=== PATIENT | male | born 1935 | race American Indian/Alaskan Native ===

== ENCOUNTER 2017-10-04 08:27 | Outpatient (CLI) | payer MEDICARE ==
--- NOTE | 2017-10-04 12:04 | Cat Scan Report ---
CT ABDOMEN PELVIS WITHOUT CONTRAST: HISTORY: Restaging of prostate cancer. COMPARISON: 07/29/16. TECHNIQUE: Helical CT in 1.25mm intervals without IV contrast. Sagittal and coronal reconstructions. FINDINGS: Lung bases: The visualized lung bases are well aerated. No nodule or effusion. Mild cardiomegaly is stable. Liver: Normal. 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 No biliary dilatation is appreciated. Pancreas: Normal. Spleen: Normal. Kidneys/ureters/bladder: Scattered simple appearing renal cysts are noted bilaterally. No evidence for calculus or hydronephrosis. The ureters and bladder are unremarkable. The prostate gland measures 3.6 cm in diameter. Adrenal glands: Normal. Aorta: Mild diffuse calcifications without aneurysm. Intestines: Unremarkable given no oral contrast was administered. Appendix: Normal. Pelvic viscera: Normal. Ascites: None. Adenopathy: None. Musculoskeletal: There is a new sclerotic bony lesion in the left side of the T12 vertebral body measuring 3.1 x 2.4 cm. No additional bony lesions are appreciated. Mild osteopenia and degenerative changes are noted. IMPRESSION: There is a new sclerotic bone lesion in T12 concerning for a solitary bony metastasis. No evidence of visceral mass or adenopathy. Bilateral renal cysts, stable. Porcelain gallbladder, unchanged. Mild cardiomegaly.
--- NOTE | 2017-10-04 14:38 | Nuclear Medicine Report ---
BONE SCAN: History: Prostate cancer Comparison: Bone scan performed 07/[address] abdomen pelvis without contrast performed the same day. After injection of isotope, gamma camera imaging of the bony system was done. There is subtle uptake along the left side of T12 which correlates with the sclerotic bony lesion seen on CT performed same day. No additional areas of suspicious uptake are identified. There is normal renal and soft tissue activity. 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
== END 2017-10-04 08:28 | disposition home or self-care (01) ==
LOC: NM 08:27
PROVIDERS: ATTEND Urology
DX: C79.51 Secondary malignant neoplasm of bone (principal); C61 Malignant neoplasm of prostate; I51.7 Cardiomegaly; N28.1 Cyst of kidney, acquired; I70.0 Atherosclerosis of aorta; M85.88 Other specified disorders of bone density and structure, other site; M47.894 Other spondylosis, thoracic region
CPT/HCPCS: 74176; 78306; A9503

== ENCOUNTER 2018-03-02 09:04 | Outpatient (CLI) | payer MEDICARE ==
--- NOTE | 2018-03-02 10:21 | Ultrasound Report ---
ULTRASOUND ABDOMEN LIMITED: TECHNIQUE: Transabdominal ultrasound with color Doppler interrogation. HISTORY: Elevated liver enzymes. COMPARISON: CT abdomen pelvis without contrast dated 09/24/17. FINDINGS: LIVER: Normal. BILIARY SYSTEM: Porcelain gallbladder is again noted. There is no evidence for biliary dilatation. The CBD measures 3 mm. PANCREAS: Normal. RIGHT KIDNEY: Normal. PROXIMAL AORTA: Normal. ASCITES: None. IMPRESSION: Unremarkable sonographic appearance of the liver. Porcelain gallbladder, unchanged.
== END 2018-03-02 09:05 | disposition home or self-care (01) ==
LOC: US 09:04
PROVIDERS: ATTEND Internal Medicine
DX: K72.90 Hepatic failure, unspecified without coma (principal); K76.89 Other specified diseases of liver; R79.89 Other specified abnormal findings of blood chemistry; I11.0 Hypertensive heart disease with heart failure; I50.9 Heart failure, unspecified; E78.5 Hyperlipidemia, unspecified; E11.9 Type 2 diabetes mellitus without complications; D64.9 Anemia, unspecified
CPT/HCPCS: 76705

== ENCOUNTER 2018-07-12 08:45 | Outpatient (CLI) | payer MEDICARE ==
--- NOTE | 2018-07-12 12:15 | Nuclear Medicine Report ---
BONE SCAN: History: Prostate cancer. Comparison: Bone scan dated 10/04/17. CT abdomen pelvis without contrast performed the same day. After injection of isotope, gamma camera imaging of the bony system was done. There is normal soft tissue and renal uptake. Subtle increased uptake at the level of T12 is stable since the previous bone scan. CAT scan demonstrates a sclerotic lesion at this level consistent with a bony metastasis. No new areas of abnormal radiotracer uptake developed. IMPRESSION: No change. 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 No change since 10/04/17.
--- NOTE | 2018-07-12 12:18 | Cat Scan Report ---
CT ABDOMEN PELVIS WITHOUT CONTRAST: HISTORY: Prostate cancer. COMPARISON: 10/04/17. TECHNIQUE: Helical CT in 1.25mm intervals without IV contrast. Sagittal and coronal reconstructions. FINDINGS: Lung bases: Normal. Liver: Normal. Biliary system: Calcified gallbladder consistent with porcelain gallbladder is unchanged. Pancreas: Normal. Spleen: Normal. Kidneys/ureters/bladder: Scattered simple renal cysts are stable in size and number. No evidence for nephrolithiasis, mass or hydronephrosis. The ureters and bladder are within normal limits. The prostate is normal size. Adrenal glands: Normal. Aorta: Mild diffuse calcifications. No aneurysm. Intestines: No evidence for bowel obstruction or focal inflammation. Appendix: Normal. Pelvic viscera: Normal. Ascites: None. Adenopathy: None. Musculoskeletal: Solitary sclerotic bony lesion at T12 appears stable in size. No new bony lesions. Mild thoracolumbar spondylosis. IMPRESSION: Stable findings since 10/04/17. Solitary bone lesion at T12 is again noted. No evidence for visceral mass or adenopathy. Porcelain gallbladder. Bilateral renal cysts, stable.
== END 2018-07-12 08:46 | disposition home or self-care (01) ==
LOC: NM 08:45
PROVIDERS: ATTEND Urology
DX: C79.51 Secondary malignant neoplasm of bone (principal); N28.1 Cyst of kidney, acquired; M47.895 Other spondylosis, thoracolumbar region; M89.9 Disorder of bone, unspecified; E11.9 Type 2 diabetes mellitus without complications; I11.0 Hypertensive heart disease with heart failure; I50.9 Heart failure, unspecified
CPT/HCPCS: 74176; 78306; A9503

== ENCOUNTER 2019-10-31 11:19 | Inpatient (IN) | payer MEDICARE ==
--- NOTE | 2019-10-31 12:23 | Emergency Department Report ---
ED Altered Mental Status HPI - General Chief Complaint: Altered Mental Status Stated Complaint: DISORIENTED/WEAKNESS Time Seen by Provider: 10/31/19 12:15 Source: patient Mode of arrival: Ambulatory Limitations: No Limitations - History of Present Illness Initial Comments: Patient is an 83-year-old -[place] male who comes to the emergency room via EMS from his PCPs officE. Patient had a scheduled appointment with his PCP today. He did see the PCP and reported that he had a fall last night. His family found him on the floor at about 330 this morning. Patient does not know how he got to the floor. Family is concerned because the patient has endorsed a new weakness. Patient does have underlying mild dementia but his weakness reported by family is increasing. Patient also reports that at times the patient is slow to respond. His blood sugar via EMS was 104. Patient denies chest pain or shortness of breath. Pt denies any focal pain secondary to his fall. Patient does have a medical history of diabetes, hypertension and prostate cancer. Patient denies having any heart problems. He has a echo in the system from several years ago with a normal EF. PMH HTN Hld prostate ca DM dementia Rx norvasc asa clonidine glipizide HCTZ losartan statin aricept tamsulosin prostate injections and pills- does not know name. Pt and are poor informants. No focal neuro deficit on exam. MD Complaint: weakness Associated Symptoms: denies other symptoms, weakness - Related Data Home Medications Medication Instructions Recorded Confirmed Last Taken Amlodipine Besylate [Norvasc] 10 mg PO DAILY 10/31/19 10/31/19 1 Day Ago ~10/30/19 Clonidine HCl [Kapvay] 0.1 mg PO QHS 10/31/19 10/31/19 1 Day Ago ~10/30/19 Losartan/Hydrochlorothiazide 1 each PO DAILY 10/31/19 10/31/19 1 Day Ago [Losartan-Hctz 100-25 mg Tab] ~10/30/19 Memantine HCl 10 mg PO DAILY 10/31/19 10/31/19 1 Day Ago ~10/30/19 Pravastatin Sodium [Pravastatin] 20 mg PO QHS 10/31/19 10/31/19 1 Day Ago ~10/30/19 Tamsulosin [Flomax] 0.4 mg PO BID 10/31/19 10/31/19 1 Day Ago ~10/30/19 glipiZIDE XL [Glucotrol Xl] 10 mg PO QHS 10/31/19 10/31/19 1 Day Ago ~10/30/19 hydroCHLOROthiazide [Hctz] 12.5 mg PO QDAY 10/31/19 10/31/19 1 Day Ago ~10/30/19 Previous Rx's Medication Instructions Recorded Last Taken Type Aspirin [Aspirin BABY CHEW TAB] 81 mg PO QDAY #30 tab.chew 06/20/13 1 Day Ago Rx ~10/30/19 Allergies Allergy/AdvReac Type Severity Reaction Status Date / Time No Known Allergies Allergy Unverified 06/18/13 19:31 ED Review of Systems ROS: Stated complaint: DISORIENTED/WEAKNESS Other details as noted in HPI Comment: All other systems reviewed and negative ED Past Medical Hx - Past Medical History Previous Medical History?: Yes Hx Hypertension: Yes Hx CVA: No Hx Heart Attack/AMI: No Hx Congestive Heart Failure: Yes Hx Diabetes: Yes Hx Deep Vein Thrombosis: No Hx Pulmonary Embolism: No Hx GERD: No Hx Liver Disease: No Hx Renal Disease: No Hx of Cancer: No Hx Sickle Cell Disease: No Hx Arthritis: No Hx Headaches / Migraines: No Hx Seizures: No Hx Kidney Stones: No Hx Psychiatric Treatment: No Hx Asthma: No Hx COPD: No Hx Tuberculosis: No Hx Dementia: Yes Hx HIV: No Additional medical history: high cholesterol. Prostate CA - Surgical History Past Surgical History?: No - Family History Family history: no significant - Social History Smoking Status: Never Smoker Substance Use Type: None - Medications Home Medications: Home Medications Medication Instructions Recorded Confirmed Last Taken Type Aspirin [Aspirin BABY CHEW TAB] 81 mg PO QDAY #30 tab.chew 06/20/13 10/31/19 1 Day Ago Rx ~10/30/19 Amlodipine Besylate [Norvasc] 10 mg PO DAILY 10/31/19 10/31/19 1 Day Ago History ~10/30/19 Clonidine HCl [Kapvay] 0.1 mg PO QHS 10/31/19 10/31/19 1 Day Ago History ~10/30/19 Losartan/Hydrochlorothiazide 1 each PO DAILY 10/31/19 10/31/19 1 Day Ago History [Losartan-Hctz 100-25 mg Tab] ~10/30/19 Memantine HCl 10 mg PO DAILY 10/31/19 10/31/19 1 Day Ago History ~10/30/19 Pravastatin Sodium [Pravastatin] 20 mg PO QHS 10/31/19 10/31/19 1 Day Ago History ~10/30/19 Tamsulosin [Flomax] 0.4 mg PO BID 10/31/19 10/31/19 1 Day Ago History ~10/30/19 glipiZIDE XL [Glucotrol Xl] 10 mg PO QHS 10/31/19 10/31/19 1 Day Ago History ~10/30/19 hydroCHLOROthiazide [Hctz] 12.5 mg PO QDAY 10/31/19 10/31/19 1 Day Ago History ~10/30/19 ED Physical Exam - General Limitations: No Limitations General appearance: alert, in no apparent distress - Head Head exam: Present: atraumatic, normocephalic - Eye Eye exam: Present: normal appearance - ENT ENT exam: Present: mucous membranes dry - Neck Neck exam: Present: normal inspection - Respiratory Respiratory exam: Present: normal lung sounds bilaterally. Absent: respiratory distress - Cardiovascular Cardiovascular Exam: Present: regular rate, bradycardia. Absent: systolic murmur, diastolic murmur, rubs, gallop - GI/Abdominal GI/Abdominal exam: Present: soft, normal bowel sounds - Rectal Rectal exam: Present: deferred - Extremities Exam Extremities exam: Present: normal inspection - Back Exam Back exam: Present: normal inspection - Neurological Exam Neurological exam: Present: alert, oriented X3 - Psychiatric Psychiatric exam: Present: normal affect, normal mood - Skin Skin exam: Present: warm, dry, intact, pallor. Absent: rash - Assessment Assessment Interval: Baseline - Level of Consciousness 1a. Level of Consciousness: alert/keenly responsive - LOC Questions 1b. LOC Questions: answers both correctly - LOC Command 1c. LOC Commands: performs tasks correctly - Best Gaze 2. Best Gaze: normal - Visual 3. Visual: no visual loss - Facial Palsy 4. Facial Palsy: normal symmetrical movement - Motor Arm 5a. Motor Arm Left: no drift 5b. Motor Arm Right: no drift - Motor Leg 6a. Motor Leg Left: no drift 6b. Motor Leg Right: no drift - Limb Ataxia 7. Limb Ataxia: absent - Sensory 8. Sensory: normal - Best Language 9. Best Language: no aphasia - Dysarthria 10. Dysarthria: normal - Extinction and Inattention 11. Extinction/Inattention: no abnormality - Scoring Total Score: 0 Stroke Severity: No Stroke Symptoms ED Course Vital Signs 10/31/19 12:34 Pulse Rate 58 L Respiratory 19 Rate Blood Pressure 131/50 [Left] O2 Sat by Pulse 100 Oximetry - Reevaluation(s) Reevaluation #1: 10/31/19 16:37 Discussed with cardiology- [place] [facility] [place]. - Lab Data Result diagrams: 10/31/19 11:51 10/31/19 Unknown Lab Results 10/31/19 10/31/19 10/31/19 Range/Units 11:51 11:51 12:44 WBC 16.3 H (4.5-11.0) K/mm3 RBC 5.14 H (3.65-5.03) M/mm3 Hgb 9.4 L (11.8-15.2) gm/dl Hct 30.8 L (35.5-45.6) % MCV 60 L (84-94) fl MCH 18 L (28-32) pg MCHC 31 L (32-34) % RDW 22.9 H (13.2-15.2) % Plt Count 683 H (140-440) K/mm3 Crockett % (Auto) Card Lacer Add Manual Diff Complete Total Counted 100 Seg Neuts % (Manual) 88.0 H (40.0-70.0) % Band Neutrophils % 0 % Lymphocytes % (Manual) 4.0 L (13.4-35.0) % Reactive Lymphs % (Man) 0 % Monocytes % (Manual) 6.0 (0.0-7.3) % Eosinophils % (Manual) 1.0 (0.0-4.3) % Basophils % (Manual) 1.0 (0.0-1.8) % Metamyelocytes % 0 % Myelocytes % 0 % Promyelocytes % 0 % Blast Cells % 0 % Nucleated RBC % Not Reportable Seg Neutrophils # Man 14.3 H (1.8-7.7) K/mm3 Band Neutrophils # 0.0 K/mm3 Lymphocytes # (Manual) 0.7 L (1.2-5.4) K/mm3 Abs React Lymphs (Man) 0.0 K/mm3 Monocytes # (Manual) 1.0 H (0.0-0.8) K/mm3 Eosinophils # (Manual) 0.2 (0.0-0.4) K/mm3 Basophils # (Manual) 0.2 H (0.0-0.1) K/mm3 Metamyelocytes # 0.0 K/mm3 Myelocytes # 0.0 K/mm3 Promyelocytes # 0.0 K/mm3 Blast Cells # 0.0 K/mm3 WBC Morphology Not Reportable Hypersegmented Neuts Not Reportable Hyposegmented Neuts Not Reportable Hypogranular Neuts Not Reportable Smudge Cells Not Reportable Toxic Granulation Not Reportable Toxic Vacuolation Not Reportable Dohle Bodies Not Reportable Pelger-Huet Anomaly Not Reportable Riaz Rods Not Reportable Platelet Estimate Consistent w auto Clumped Platelets Not Reportable Plt Clumps, EDTA Not Reportable Large Platelets Not Reportable Giant Platelets Not Reportable Platelet Satelliting Not Reportable Plt Morphology Comment Not Reportable RBC Morphology Not Reportable Dimorphic RBCs Not Reportable Polychromasia Not Reportable Hypochromasia 2+ Poikilocytosis Not Reportable Anisocytosis 1+ Microcytosis 2+ Macrocytosis Not Reportable Spherocytes Not Reportable Pappenheimer Bodies Not Reportable Sickle Cells Not Reportable Target Cells Not Reportable Tear Drop Cells Not Reportable Ovalocytes Not Reportable Helmet Cells Not Reportable Contreras-Carpenter Bodies Not Reportable [place] Rings Not Reportable Nain Cells Not Reportable Bite Cells Not Reportable Crenated Cell Not Reportable Elliptocytes 1+ Acanthocytes (Spur) Not Reportable Rouleaux Not Reportable Hemoglobin C Crystals Not Reportable Schistocytes Not Reportable Malaria parasites Not Reportable Wade Bodies Not Reportable Hem Pathologist Commnt No PT (12.2-14.9) Sec. INR (0.87-1.13) Sodium 132 L (137-145) mmol/L Potassium 4.2 (3.6-5.0) mmol/L Chloride 95.2 L (98-107) mmol/L Carbon Dioxide 23 (22-30) mmol/L Anion Gap 18 mmol/L BUN 15 (9-20) mg/dL Creatinine 0.8 (0.8-1.5) mg/dL Estimated GFR > 60 ml/min BUN/Creatinine Ratio 19 % Glucose 70 L (75-100) mg/dL POC Glucose 85 (70-105) Lactic Acid (0.7-2.0) mmol/L Calcium 8.9 (8.4-10.2) mg/dL Total Bilirubin (0.1-1.2) mg/dL Direct Bilirubin (0-0.2) mg/dL AST (5-40) units/L ALT (7-56) units/L Alkaline Phosphatase (35-129) units/L Troponin T (0.00-0.029) ng/mL Total Protein (6.3-8.2) g/dL Albumin (3.9-5) g/dL Albumin/Globulin Ratio % 10/31/19 10/31/19 10/31/19 Range/Units 14:26 Unknown Unknown WBC (4.5-11.0) K/mm3 RBC (3.65-5.03) M/mm3 Hgb (11.8-15.2) gm/dl Hct (35.5-45.6) % MCV (84-94) fl MCH (28-32) pg MCHC (32-34) % RDW (13.2-15.2) % Plt Count (140-440) K/mm3 Crockett % (Auto) Add Manual Diff Total Counted Seg Neuts % (Manual) (40.0-70.0) % Band Neutrophils % % Lymphocytes % (Manual) (13.4-35.0) % Reactive Lymphs % (Man) % Monocytes % (Manual) (0.0-7.3) % Eosinophils % (Manual) (0.0-4.3) % Basophils % (Manual) (0.0-1.8) % Metamyelocytes % % Myelocytes % % Promyelocytes % % Blast Cells % % Nucleated RBC % Seg Neutrophils # Man (1.8-7.7) K/mm3 Band Neutrophils # K/mm3 Lymphocytes # (Manual) (1.2-5.4) K/mm3 Abs React Lymphs (Man) K/mm3 Monocytes # (Manual) (0.0-0.8) K/mm3 Eosinophils # (Manual) (0.0-0.4) K/mm3 Basophils # (Manual) (0.0-0.1) K/mm3 Metamyelocytes # K/mm3 Myelocytes # K/mm3 Promyelocytes # K/mm3 Blast Cells # K/mm3 WBC Morphology Hypersegmented Neuts Hyposegmented Neuts Hypogranular Neuts Smudge Cells Toxic Granulation Toxic Vacuolation Dohle Bodies Pelger-Huet Anomaly Riaz Rods Platelet Estimate Clumped Platelets Plt Clumps, EDTA Large Platelets Giant Platelets Platelet Satelliting Plt Morphology Comment RBC Morphology Dimorphic RBCs Polychromasia Hypochromasia Poikilocytosis Anisocytosis Microcytosis Macrocytosis Spherocytes Pappenheimer Bodies Sickle Cells Target Cells Tear Drop Cells Ovalocytes Helmet Cells Contreras-Carpenter Bodies [place] Rings Nain Cells Bite Cells Crenated Cell Elliptocytes Acanthocytes (Spur) Rouleaux Hemoglobin C Crystals Schistocytes Malaria parasites Wade Bodies Hem Pathologist Commnt PT 16.9 H (12.2-14.9) Sec. INR 1.35 H (0.87-1.13) Sodium (137-145) mmol/L Potassium (3.6-5.0) mmol/L Chloride (98-107) mmol/L Carbon Dioxide (22-30) mmol/L Anion Gap mmol/L BUN (9-20) mg/dL Creatinine (0.8-1.5) mg/dL Estimated GFR ml/min BUN/Creatinine Ratio % Glucose (75-100) mg/dL POC Glucose (70-105) Lactic Acid 1.10 (0.7-2.0) mmol/L Calcium (8.4-10.2) mg/dL Total Bilirubin (0.1-1.2) mg/dL Direct Bilirubin (0-0.2) mg/dL AST (5-40) units/L ALT (7-56) units/L Alkaline Phosphatase (35-129) units/L Troponin T < 0.010 (0.00-0.029) ng/mL Total Protein (6.3-8.2) g/dL Albumin (3.9-5) g/dL Albumin/Globulin Ratio % 10/31/19 10/31/19 Range/Units Unknown Unknown WBC (4.5-11.0) K/mm3 RBC (3.65-5.03) M/mm3 Hgb (11.8-15.2) gm/dl Hct (35.5-45.6) % MCV (84-94) fl MCH (28-32) pg MCHC (32-34) % RDW (13.2-15.2) % Plt Count (140-440) K/mm3 Crockett % (Auto) Add Manual Diff Total Counted Seg Neuts % (Manual) (40.0-70.0) % Band Neutrophils % % Lymphocytes % (Manual) (13.4-35.0) % Reactive Lymphs % (Man) % Monocytes % (Manual) (0.0-7.3) % Eosinophils % (Manual) (0.0-4.3) % Basophils % (Manual) (0.0-1.8) % Metamyelocytes % % Myelocytes % % Promyelocytes % % Blast Cells % % Nucleated RBC % Seg Neutrophils # Man (1.8-7.7) K/mm3 Band Neutrophils # K/mm3 Lymphocytes # (Manual) (1.2-5.4) K/mm3 Abs React Lymphs (Man) K/mm3 Monocytes # (Manual) (0.0-0.8) K/mm3 Eosinophils # (Manual) (0.0-0.4) K/mm3 Basophils # (Manual) (0.0-0.1) K/mm3 Metamyelocytes # K/mm3 Myelocytes # K/mm3 Promyelocytes # K/mm3 Blast Cells # K/mm3 WBC Morphology Hypersegmented Neuts Hyposegmented Neuts Hypogranular Neuts Smudge Cells Toxic Granulation Toxic Vacuolation Dohle Bodies Pelger-Huet Anomaly Riaz Rods Platelet Estimate Clumped Platelets Plt Clumps, EDTA Large Platelets Giant Platelets Platelet Satelliting Plt Morphology Comment RBC Morphology Dimorphic RBCs Polychromasia Hypochromasia Poikilocytosis Anisocytosis Microcytosis Macrocytosis Spherocytes Pappenheimer Bodies Sickle Cells Target Cells Tear Drop Cells Ovalocytes Helmet Cells Contreras-Carpenter Bodies [place] Rings Nain Cells Bite Cells Crenated Cell Elliptocytes Acanthocytes (Spur) Rouleaux Hemoglobin C Crystals Schistocytes Malaria parasites Wade Bodies Hem Pathologist Commnt PT (12.2-14.9) Sec. INR (0.87-1.13) Sodium 129 L (137-145) mmol/L Potassium 5.0 (3.6-5.0) mmol/L Chloride 91.8 L (98-107) mmol/L Carbon Dioxide 23 (22-30) mmol/L Anion Gap 19 mmol/L BUN 15 (9-20) mg/dL Creatinine 0.8 (0.8-1.5) mg/dL Estimated GFR > 60 ml/min BUN/Creatinine Ratio 19 % Glucose 85 (75-100) mg/dL POC Glucose (70-105) Lactic Acid 1.20 (0.7-2.0) mmol/L Calcium 9.0 (8.4-10.2) mg/dL Total Bilirubin 0.70 (0.1-1.2) mg/dL Direct Bilirubin < 0.2 (0-0.2) mg/dL AST 56 H (5-40) units/L ALT 15 (7-56) units/L Alkaline Phosphatase 45 (35-129) units/L Troponin T (0.00-0.029) ng/mL Total Protein 6.8 (6.3-8.2) g/dL Albumin 3.9 (3.9-5) g/dL Albumin/Globulin Ratio 1.3 % - EKG Data EKG shows normal: sinus rhythm Rate: bradycardia Interpretation: no acute changes - Radiology Data Radiology results: report reviewed, image reviewed - Medical Decision Making Labs 10/31/19 10/31/19 10/31/19 11:51 11:51 12:44 WBC 16.3 H RBC 5.14 H Hgb 9.4 L Hct 30.8 L MCV 60 L MCH 18 L MCHC 31 L RDW 22.9 H Plt Count 683 H Crockett % (Auto) Card Lacer Add Manual Diff Complete Total Counted 100 Seg Neuts % (Manual) 88.0 H Band Neutrophils % 0 Lymphocytes % (Manual) 4.0 L Reactive Lymphs % (Man) 0 Monocytes % (Manual) 6.0 Eosinophils % (Manual) 1.0 Basophils % (Manual) 1.0 Metamyelocytes % 0 Myelocytes % 0 Promyelocytes % 0 Blast Cells % 0 Nucleated RBC % Not Reportable Seg Neutrophils # Man 14.3 H Band Neutrophils # 0.0 Lymphocytes # (Manual) 0.7 L Abs React Lymphs (Man) 0.0 Monocytes # (Manual) 1.0 H Eosinophils # (Manual) 0.2 Basophils # (Manual) 0.2 H Metamyelocytes # 0.0 Myelocytes # 0.0 Promyelocytes # 0.0 Blast Cells # 0.0 WBC Morphology Not Reportable Hypersegmented Neuts Not Reportable Hyposegmented Neuts Not Reportable Hypogranular Neuts Not Reportable Smudge Cells Not Reportable Toxic Granulation Not Reportable Toxic Vacuolation Not Reportable Dohle Bodies Not Reportable Pelger-Huet Anomaly Not Reportable Riaz Rods Not Reportable Platelet Estimate Consistent w auto Clumped Platelets Not Reportable Plt Clumps, EDTA Not Reportable Large Platelets Not Reportable Giant Platelets Not Reportable Platelet Satelliting Not Reportable Plt Morphology Comment Not Reportable RBC Morphology Not Reportable Dimorphic RBCs Not Reportable Polychromasia Not Reportable Hypochromasia 2+ Poikilocytosis Not Reportable Anisocytosis 1+ Microcytosis 2+ Macrocytosis Not Reportable Spherocytes Not Reportable Pappenheimer Bodies Not Reportable Sickle Cells Not Reportable Target Cells Not Reportable Tear Drop Cells Not Reportable Ovalocytes Not Reportable Helmet Cells Not Reportable Contreras-Carpenter Bodies Not Reportable [place] Rings Not Reportable Nain Cells Not Reportable Bite Cells Not Reportable Crenated Cell Not Reportable Elliptocytes 1+ Acanthocytes (Spur) Not Reportable Rouleaux Not Reportable Hemoglobin C Crystals Not Reportable Schistocytes Not Reportable Malaria parasites Not Reportable Wade Bodies Not Reportable Hem Pathologist Commnt No PT INR Sodium 132 L Potassium 4.2 Chloride 95.2 L Carbon Dioxide 23 Anion Gap 18 BUN 15 Creatinine 0.8 Estimated GFR > 60 BUN/Creatinine Ratio 19 Glucose 70 L POC Glucose 85 Lactic Acid Calcium 8.9 Total Bilirubin Direct Bilirubin AST ALT Alkaline Phosphatase Troponin T Total Protein Albumin Albumin/Globulin Ratio 10/31/19 10/31/19 10/31/19 14:26 Unknown Unknown WBC RBC Hgb Hct MCV MCH MCHC RDW Plt Count [place]ckett % (Auto) Add Manual Diff Total Counted Seg Neuts % (Manual) Band Neutrophils % Lymphocytes % (Manual) Reactive Lymphs % (Man) Monocytes % (Manual) Eosinophils % (Manual) Basophils % (Manual) Metamyelocytes % Myelocytes % Promyelocytes % Blast Cells % Nucleated RBC % Seg Neutrophils # Man Band Neutrophils # Lymphocytes # (Manual) Abs React Lymphs (Man) Monocytes # (Manual) Eosinophils # (Manual) Basophils # (Manual) Metamyelocytes # Myelocytes # Promyelocytes # Blast Cells # WBC Morphology Hypersegmented Neuts Hyposegmented Neuts Hypogranular Neuts Smudge Cells Toxic Granulation Toxic Vacuolation Dohle Bodies Pelger-Huet Anomaly Riaz Rods Platelet Estimate Clumped Platelets Plt Clumps, EDTA Large Platelets Giant Platelets Platelet Satelliting Plt Morphology Comment RBC Morphology Dimorphic RBCs Polychromasia Hypochromasia Poikilocytosis Anisocytosis Microcytosis Macrocytosis Spherocytes Pappenheimer Bodies Sickle Cells Target Cells Tear Drop Cells Ovalocytes Helmet Cells Contreras-Carpenter Bodies [place] Rings [place] Cells Bite Cells Crenated Cell Elliptocytes Acanthocytes (Spur) Rouleaux Hemoglobin C Crystals Schistocytes Malaria parasites Wade Bodies Hem Pathologist Commnt PT 16.9 H INR 1.35 H Sodium Potassium Chloride Carbon Dioxide Anion Gap BUN Creatinine Estimated GFR BUN/Creatinine Ratio Glucose POC Glucose Lactic Acid 1.10 Calcium Total Bilirubin Direct Bilirubin AST ALT Alkaline Phosphatase Troponin T < 0.010 Total Protein Albumin Albumin/Globulin Ratio 10/31/19 10/31/19 Unknown Unknown WBC RBC Hgb Hct MCV MCH MCHC RDW Plt Count [place] % (Auto) Add Manual Diff Total Counted Seg Neuts % (Manual) Band Neutrophils % Lymphocytes % (Manual) Reactive Lymphs % (Man) Monocytes % (Manual) Eosinophils % (Manual) Basophils % (Manual) Metamyelocytes % Myelocytes % Promyelocytes % Blast Cells % Nucleated RBC % Seg Neutrophils # Man Band Neutrophils # Lymphocytes # (Manual) Abs React Lymphs (Man) Monocytes # (Manual) Eosinophils # (Manual) Basophils # (Manual) Metamyelocytes # Myelocytes # Promyelocytes # Blast Cells # WBC Morphology Hypersegmented Neuts Hyposegmented Neuts Hypogranular Neuts Smudge Cells Toxic Granulation Toxic Vacuolation Dohle Bodies Pelger-Huet Anomaly Riaz Rods Platelet Estimate Clumped Platelets Plt Clumps, EDTA Large Platelets Giant Platelets Platelet Satelliting Plt Morphology Comment RBC Morphology Dimorphic RBCs Polychromasia Hypochromasia Poikilocytosis Anisocytosis Microcytosis Macrocytosis Spherocytes Pappenheimer Bodies Sickle Cells Target Cells Tear Drop Cells Ovalocytes Helmet Cells Contreras-Carpenter Bodies [place] Rings [place] Cells Bite Cells Crenated Cell Elliptocytes Acanthocytes (Spur) Rouleaux Hemoglobin C Crystals Schistocytes Malaria parasites Wade Bodies Hem Pathologist Commnt PT INR Sodium 129 L Potassium 5.0 Chloride 91.8 L Carbon Dioxide 23 Anion Gap 19 BUN 15 Creatinine 0.8 Estimated GFR > 60 BUN/Creatinine Ratio 19 Glucose 85 POC Glucose Lactic Acid 1.20 Calcium 9.0 Total Bilirubin 0.70 Direct Bilirubin < 0.2 AST 56 H ALT 15 Alkaline Phosphatase 45 Troponin T Total Protein 6.8 Albumin 3.9 Albumin/Globulin Ratio 1.3 Vital Signs 10/31/19 12:34 Pulse Rate 58 L Respiratory 19 Rate Blood Pressure 131/50 [Left] O2 Sat by Pulse [address] Fermin labs noted xray noted CT noted 1600 ekg noted and repeated. The lowest I have seen HR is 49bpm. BP stable. Discussed with cards- [place] [facility] [place] Last ECHO in EMR with normal EF- 2013. 1615 and pt updated- again confirmed no hx of heart attack and pt does not see a cardiology MD output. 1640 U/A pending- C xray noted, no abd pain, blood cultures sent. 1445 Dr Briscoe notified of pt admit. TSH pending - Differential Diagnosis ro cva/tia/sepsis/acs - Core Measures Measure Exclusions: not indicated - NEXUS Criteria Focal neurological deficit present: No Midline spinal tenderness present: No Altered level of consciousness: No Intoxication present: No Distracting injury present: No NEXUS results: C-Spine can be cleared clinically by these results. Imaging is not required. Critical care attestation.: If time is entered above; I have spent that time in minutes in the direct care of this critically ill patient, excluding procedure time. ED Disposition Clinical Impression: Weakness, Bradycardia, Dementia, Prostate CA, Leukocytosis (leucocytosis), Hyponatremia Disposition: [id number] OP ADMIT IP TO THIS HOSP Is pt being admited?: Yes Does the pt Need Aspirin: No Condition: Stable Referrals: PRIMARY CARE, [Primary Care Provider] - 3-5 Days Time of Disposition: 16:31
[2019-10-31 12:39] LABS: Hematocrit 30.8 % (35.5-45.6); Hemoglobin 9.4 gm/dl (11.8-15.2); Mean Corpuscular HGB Conc 31 % (32-34); Platelet Count 683 K/mm3 (140-440); Red Blood Count 5.14 M/mm3 (3.65-5.03)
[2019-10-31 12:44] LABS: Mean Corpuscular Volume 60 fl (84-94); Red Cell Distribution Width 22.9 % (13.2-15.2)
--- NOTE | 2019-10-31 12:51 | XRay Report ---
CHEST 1 VIEW INDICATION: Weakness. COMPARISON: None available. FINDINGS: Support devices: None. Heart: Within normal limits. Pulmonary vascular: Normal. Lungs/Pleura: No acute air space or interstitial disease. Additional findings: None. IMPRESSION: 1. No acute findings. Signer Name: Akash Webster MD Signed: 10/31/2019 12:46 PM Workstation Name: [id number]
[2019-10-31] MEDS ORDERED: SODIUM CHLORIDE 0.9% 1000 ML IV SOLN IV ONE (12:59)
[2019-10-31 13:16] LABS: BUN/Creatinine Ratio 19; Blood Urea Nitrogen 15 mg/dL (9-20); Calcium 8.9 mg/dL (8.4-10.2); Hemolysis Index 21
[2019-10-31 13:24] LABS: Total Cells Counted 100
[2019-10-31 13:25] LABS: Anisocytosis 1+; Hypochromasia 2+; Platelet Estimate Consistent w Auto
[2019-10-31 14:13] LABS: INR 1.35 (0.87-1.13)
[2019-10-31 14:22] LABS: Albumin 3.9 g/dL (3.9-5); BUN/Creatinine Ratio 19; Bilirubin,Direct < 0.2 mg/dL (0-0.2); Blood Urea Nitrogen 15 mg/dL (9-20); Hemolysis Index 124
[2019-10-31 14:23] LABS: Alanine Aminotransferase 15 units/L (7-56)
--- NOTE | 2019-10-31 14:33 | Cat Scan Report ---
CT head/brain wo con INDICATION: AMS. TECHNIQUE: Routine CT head without contrast. All CT scans at this location are performed using CT dos e reduction for ALARA by means of automated exposure control. COMPARISON: None. FINDINGS: BRAIN / INTRACRANIAL CONTENTS: No acute hemorrhage, mass effect, midline shift, or hydrocephalus. No appreciable acute large territorial or lacunar infarct. No chronic infarct. Age-commensurate ventricu lar and cisternal/sulcal prominence. ORBITS: No significant abnormality of visualized orbits. SINUSES / MASTOIDS: No significant abnormality of visualized sinuses and mastoid air cells. ADDITIONAL FINDINGS: None. IMPRESSION: 1. No acute intracranial abnormality. Signer Name: Desmond Lantigua MD Signed: 10/31/2019 2:28 PM Workstation Name: [email or web address]
[2019-10-31] MEDS: cefTRIAXone/NS 1 GM/50 ML 1 GM/50 ML BAG IV SCH (14:40)
--- NOTE | 2019-10-31 21:21 | History and Physical Report ---
History of Present Illness Date of examination: 10/31/19 Date of admission: 10/31/2019 Chief complaint: Syncopal episode at 3:30 AM Generalized weakness History of present illness: 83-year-old male with history of hypertension, early dementia, hyperlipidemia BPH and type 2 diabetes brought in by the family via EMS because of a fall around 3:30 AM. Patient apparently passed out while going to the restroom. Patient also has been feeling weak. Patient is a very poor historian. No chest pain or shortness of breath. No fever or chills. Patient was sent by his PCP for abnormal EKG. In the emergency room patient had a EKG with second-degree AV block. No chest pain or shortness of breath or palpitations or diaphoresis. Past Medical History Previous Medical History?: Yes Hypertension: Yes Congestive Heart Failure: Yes Diabetes: Yes Hx Dementia: Yes Additional medical history: high cholesterol. Prostate CA Surgical History Past Surgical History?: No Family History Family history: no significant Social History Smoking Status: Never Smoker Substance Use Type: None Medications Home Medications: Home Medications Medication Instructions Recorded Confirmed Last Taken Type Aspirin [Aspirin BABY CHEW TAB] 81 mg PO QDAY #30 tab.chew 06/20/13 10/31/19 1 Day Ago Rx ~10/30/19 Amlodipine Besylate [Norvasc] 10 mg PO DAILY 10/31/19 10/31/19 1 Day Ago History ~10/30/19 Clonidine HCl [Kapvay] 0.1 mg PO QHS 10/31/19 10/31/19 1 Day Ago History ~10/30/19 Losartan/Hydrochlorothiazide 1 each PO DAILY 10/31/19 10/31/19 1 Day Ago History [Losartan-Hctz 100-25 mg Tab] ~10/30/19 Memantine HCl 10 mg PO DAILY 10/31/19 10/31/19 1 Day Ago History ~10/30/19 Pravastatin Sodium [Pravastatin] 20 mg PO QHS 10/31/19 10/31/19 1 Day Ago History ~10/30/19 Tamsulosin [Flomax] 0.4 mg PO BID 10/31/19 10/31/19 1 Day Ago History ~10/30/19 glipiZIDE XL [Glucotrol Xl] 10 mg PO QHS 10/31/19 10/31/19 1 Day Ago History ~10/30/19 hydroCHLOROthiazide [Hctz] 12.5 mg PO QDAY 10/31/19 10/31/19 1 Day Ago History ~10/30/19 Review of Systems ROS: Stated complaint: DISORIENTED/WEAKNESS Other details as noted in HPI Syncopal episode around 3:30 AM Comment: All other systems reviewed and negative Medications and Allergies Allergies Allergy/AdvReac Type Severity Reaction Status Date / Time No Known Allergies Allergy Unverified 06/18/13 19:31 Home Medications Medication Instructions Recorded Confirmed Last Taken Type Aspirin [Aspirin BABY CHEW TAB] 81 mg PO QDAY #30 tab.chew 06/20/13 10/31/19 1 Day Ago Rx ~10/30/19 Amlodipine Besylate [Norvasc] 10 mg PO DAILY 10/31/19 10/31/19 1 Day Ago History ~10/30/19 Clonidine HCl [Kapvay] 0.1 mg PO QHS 10/31/19 10/31/19 1 Day Ago History ~10/30/19 Losartan/Hydrochlorothiazide 1 each PO DAILY 10/31/19 10/31/19 1 Day Ago History [Losartan-Hctz 100-25 mg Tab] ~10/30/19 Memantine HCl 10 mg PO DAILY 10/31/19 10/31/19 1 Day Ago History ~10/30/19 Pravastatin Sodium [Pravastatin] 20 mg PO QHS 10/31/19 10/31/19 1 Day Ago History ~10/30/19 Tamsulosin [Flomax] 0.4 mg PO BID 10/31/19 10/31/19 1 Day Ago History ~10/30/19 glipiZIDE XL [Glucotrol Xl] 10 mg PO QHS 10/31/19 10/31/19 1 Day Ago History ~10/30/19 hydroCHLOROthiazide [Hctz] 12.5 mg PO QDAY 10/31/19 10/31/19 1 Day Ago History ~10/30/19 Active Meds: Active Medications Ceftriaxone Sodium (Rocephin/Ns 1 Gm/50 Ml) 1 gm in 50 mls @ 100 mls/hr IV Q24HR [facility]; Protocol Stop: 11/02/19 10:29 Last Admin: 10/31/19 14:40 Dose: 100 mls/hr Documented by: Exam - Constitutional Vitals: Temp Pulse Resp BP Pulse Ox 70 20 168/47 98 10/31/19 18:31 10/31/19 18:31 10/31/19 18:31 10/31/19 18:31 General appearance: Present: no acute distress, well-nourished - EENT Eyes: Present: PERRL ENT: hearing intact, clear oral mucosa - Neck Neck: Present: supple, normal ROM - Respiratory Respiratory effort: normal Respiratory: bilateral: CTA - Cardiovascular Heart rate: 45 Rhythm: regular Heart Sounds: Present: S1 & S2. Absent: rub, click - Extremities Extremities: no ischemia, pulses intact, pulses symmetrical, No edema Peripheral Pulses: within normal limits - Abdominal General gastrointestinal: Present: soft, non-tender, non-distended, normal bowel sounds Male genitourinary: Present: normal - Rectal Rectal Exam: deferred - Integumentary Integumentary: Present: clear, warm, dry - Musculoskeletal Musculoskeletal: gait normal, strength equal bilaterally - Psychiatric Psychiatric: appropriate mood/affect, intact judgment & insight - Neurologic Neurologic: CNII-XII intact, moves all extremities - Allied Health Allied health notes reviewed: nursing, case management MILTON score - [place] Score Age > 65: (1) Yes Aspirin use within the Past 7 Days: (0) No 3 or more CAD Risk Factors: (1) Yes 2 or more Angina events in past 24 hrs: (1) Yes Known CAD with more than 50% Stenosis: (0) No Elevated Cardiac Markers: (0) No ST Deviation Greater than 0.5mm: (0) No MILTON Score: 3 Results - Labs CBC & Chem 7: 10/31/19 11:51 10/31/19 Unknown Labs: Laboratory Last Values WBC 16.3 K/mm3 (4.5-11.0) H 10/31/19 11:51 RBC 5.14 M/mm3 (3.65-5.03) H 10/31/19 11:51 Hgb 9.4 gm/dl (11.8-15.2) L 10/31/19 11:51 Hct 30.8 % (35.5-45.6) L 10/31/19 11:51 MCV 60 fl (84-94) L 10/31/19 11:51 MCH 18 pg (28-32) L 10/31/19 11:51 MCHC 31 % (32-34) L 10/31/19 11:51 RDW 22.9 % (13.2-15.2) H 10/31/19 11:51 Plt Count 683 K/mm3 (140-440) H 10/31/19 11:51 [place] % (Auto) Financial Management Consultant 10/31/19 11:51 Add Manual Diff Complete 10/31/19 11:51 Total Counted 100 10/31/19 11:51 Seg Neuts % (Manual) 88.0 % (40.0-70.0) H 10/31/19 11:51 Band Neutrophils % 0 % 10/31/19 11:51 Lymphocytes % (Manual) 4.0 % (13.4-35.0) L 10/31/19 11:51 Reactive Lymphs % (Man) 0 % 10/31/19 11:51 Monocytes % (Manual) 6.0 % (0.0-7.3) 10/31/19 11:51 Eosinophils % (Manual) 1.0 % (0.0-4.3) 10/31/19 11:51 Basophils % (Manual) 1.0 % (0.0-1.8) 10/31/19 11:51 Metamyelocytes % 0 % 10/31/19 11:51 Myelocytes % 0 % 10/31/19 11:51 Promyelocytes % 0 % 10/31/19 11:51 Blast Cells % 0 % 10/31/19 11:51 Nucleated RBC % Not Reportable 10/31/19 11:51 Seg Neutrophils # Man 14.3 K/mm3 (1.8-7.7) H 10/31/19 11:51 Band Neutrophils # 0.0 K/mm3 10/31/19 11:51 Lymphocytes # (Manual) 0.7 K/mm3 (1.2-5.4) L 10/31/19 11:51 Abs React Lymphs (Man) 0.0 K/mm3 10/31/19 11:51 Monocytes # (Manual) 1.0 K/mm3 (0.0-0.8) H 10/31/19 11:51 Eosinophils # (Manual) 0.2 K/mm3 (0.0-0.4) 10/31/19 11:51 Basophils # (Manual) 0.2 K/mm3 (0.0-0.1) H 10/31/19 11:51 Metamyelocytes # 0.0 K/mm3 10/31/19 11:51 Myelocytes # 0.0 K/mm3 10/31/19 11:51 Promyelocytes # 0.0 K/mm3 10/31/19 11:51 Blast Cells # 0.0 K/mm3 10/31/19 11:51 WBC Morphology Not Reportable 10/31/19 11:51 Hypersegmented Neuts Not Reportable 10/31/19 11:51 Hyposegmented Neuts Not Reportable 10/31/19 11:51 Hypogranular Neuts Not Reportable 10/31/19 11:51 Smudge Cells Not Reportable 10/31/19 11:51 Toxic Granulation Not Reportable 10/31/19 11:51 Toxic Vacuolation Not Reportable 10/31/19 11:51 Dohle Bodies Not Reportable 10/31/19 11:51 Pelger-Huet Anomaly Not Reportable 10/31/19 11:51 Riaz Rods Not Reportable 10/31/19 11:51 Platelet Estimate Consistent w auto 10/31/19 11:51 Clumped Platelets Not Reportable 10/31/19 11:51 Plt Clumps, EDTA Not Reportable 10/31/19 11:51 Large Platelets Not Reportable 10/31/19 11:51 Giant Platelets Not Reportable 10/31/19 11:51 Platelet Satelliting Not Reportable 10/31/19 11:51 Plt Morphology Comment Not Reportable 10/31/19 11:51 RBC Morphology Not Reportable 10/31/19 11:51 Dimorphic RBCs Not Reportable 10/31/19 11:51 Polychromasia Not Reportable 10/31/19 11:51 Hypochromasia 2+ 10/31/19 11:51 Poikilocytosis Not Reportable 10/31/19 11:51 Anisocytosis 1+ 10/31/19 11:51 Microcytosis 2+ 10/31/19 11:51 Macrocytosis Not Reportable 10/31/19 11:51 Spherocytes Not Reportable 10/31/19 11:51 Pappenheimer Bodies Not Reportable 10/31/19 11:51 Sickle Cells Not Reportable 10/31/19 11:51 Target Cells Not Reportable 10/31/19 11:51 Tear Drop Cells Not Reportable 10/31/19 11:51 Ovalocytes Not Reportable 10/31/19 11:51 Helmet Cells Not Reportable 10/31/19 11:51 [place] Bodies Not Reportable 10/31/19 11:51 [place] Rings Not Reportable 10/31/19 11:51 Nain Cells Not Reportable 10/31/19 11:51 Bite Cells Not Reportable 10/31/19 11:51 Crenated Cell Not Reportable 10/31/19 11:51 Elliptocytes 1+ 10/31/19 11:51 Acanthocytes (Spur) Not Reportable 10/31/19 11:51 Rouleaux Not Reportable 10/31/19 11:51 Hemoglobin C Crystals Not Reportable 10/31/19 11:51 Schistocytes Not Reportable 10/31/19 11:51 Malaria parasites Not Reportable 10/31/19 11:51 Wade Bodies Not Reportable 10/31/19 11:51 Hem Pathologist Commnt No 10/31/19 11:51 PT 16.9 Sec. (12.2-14.9) H 10/31/19 Unknown INR 1.35 (0.87-1.13) H 10/31/19 Unknown Sodium 129 mmol/L (137-145) L 10/31/19 Unknown Potassium 5.0 mmol/L (3.6-5.0) 10/31/19 Unknown Chloride 91.8 mmol/L (98-107) L 10/31/19 Unknown Carbon Dioxide 23 mmol/L (22-30) 10/31/19 Unknown Anion Gap 19 mmol/L 10/31/19 Unknown BUN 15 mg/dL (9-20) 10/31/19 Unknown Creatinine 0.8 mg/dL (0.8-1.5) 10/31/19 Unknown Estimated GFR > 60 ml/min 10/31/19 Unknown BUN/Creatinine Ratio 19 % 10/31/19 Unknown Glucose 85 mg/dL (75-100) 10/31/19 Unknown POC Glucose 85 (70-105) 10/31/19 12:44 Lactic Acid 1.20 mmol/L (0.7-2.0) 10/31/19 Unknown Calcium 9.0 mg/dL (8.4-10.2) 10/31/19 Unknown Magnesium 2.00 mg/dL (1.7-2.3) 10/31/19 16:34 Total Bilirubin 0.70 mg/dL (0.1-1.2) 10/31/19 Unknown Direct Bilirubin < 0.2 mg/dL (0-0.2) 10/31/19 Unknown AST 56 units/L (5-40) H 10/31/19 Unknown ALT 15 units/L (7-56) 10/31/19 Unknown Alkaline Phosphatase 45 units/L (35-129) 10/31/19 Unknown Troponin T < 0.010 ng/mL (0.00-0.029) 10/31/19 Unknown Total Protein 6.8 g/dL (6.3-8.2) 10/31/19 Unknown Albumin 3.9 g/dL (3.9-5) 10/31/19 Unknown Albumin/Globulin Ratio 1.3 % 10/31/19 Unknown TSH 1.540 mlU/mL (0.270-4.200) 10/31/19 16:34 Short CBC 10/31/19 Range/Units 11:51 WBC 16.3 H (4.5-11.0) K/mm3 Hgb 9.4 L (11.8-15.2) gm/dl Hct 30.8 L (35.5-45.6) % Plt Count 683 H (140-440) K/mm3 BMP 10/31/19 10/31/19 11:51 Unknown Sodium 132 L 129 L Potassium 4.2 5.0 Chloride 95.2 L 91.8 L Carbon Dioxide 23 23 BUN 15 15 Creatinine 0.8 0.8 Glucose 70 L 85 Calcium 8.9 9.0 Cardiac Enzymes 10/31/19 Range/Units Unknown Troponin T < 0.010 (0.00-0.029) ng/mL Liver Function 10/31/19 Range/Units Unknown Total Bilirubin 0.70 (0.1-1.2) mg/dL Direct Bilirubin < 0.2 (0-0.2) mg/dL AST 56 H (5-40) units/L ALT 15 (7-56) units/L Alkaline Phosphatase 45 (35-129) units/L Albumin 3.9 (3.9-5) g/dL - Imaging and Cardiology EKG: report reviewed (Heart rate of 45/min bradycardia with irregular heart rate left anterior fascicular block second EKG second-degree AV block with a drop with PVCs heart rate of 60) Chest x-ray: report reviewed (No acute findings) CT Scan - head: report reviewed (No acute findings) Assessment and Plan Advance Directives: Yes (Full code) VTE prophylaxis?: Chemical Plan of care discussed with patient/family: Yes - Patient Problems (1) Second degree AV block Current Visit: Yes Status: Acute Plan to address problem: Cardiology consulted Patient had syncope also Syncope work-up (2) Syncope and collapse Current Visit: Yes Status: Acute Plan to address problem: Syncope work-up Carotid duplex scan Lexiscan in the morning Echocardiogram (3) Anemia Current Visit: Yes Status: Acute Qualifiers: Anemia type: unspecified type Qualified Code(s): D64.9 - Anemia, unspecified Plan to address problem: Anemia work-up (4) Hyponatremia Current Visit: Yes Status: Acute Plan to address problem: IV normal saline for now (5) Hypertension Current Visit: Yes Status: Chronic Qualifiers: Hypertension type: essential hypertension Qualified Code(s): I10 - Essential (primary) hypertension Plan to address problem: Continue antihypertensives Stop AV anne blockers because of the bradycardia and second-degree block (6) T2DM (type 2 diabetes mellitus) Current Visit: Yes Status: Chronic Qualifiers: Diabetes mellitus terminal press operator insulin use: unspecified terminal press operator insulin use status Plan to address problem: Coverage for now Hemoglobin A1c to be checked (7) Hyperlipemia Current Visit: No Status: Chronic Qualifiers: Hyperlipidemia type: mixed hyperlipidemia Qualified Code(s): E78.2 - Mixed hyperlipidemia Plan to address problem: Continue statins (8) DVT prophylaxis Current Visit: Yes Status: Acute Plan to address problem: On heparin and GI prophylaxis
[2019-10-31] MEDS ORDERED: HYDROmorphone 1 MG/1 ML INJ IV PRN (21:34)
[2019-10-31] MEDS ORDERED: oxyCODONE /ACETAMINOPHEN 5-325MG TAB PO PRN (21:34)
[2019-10-31] MEDS ORDERED: ACETAMINOPHEN 325 MG TAB PO PRN (21:34)
[2019-10-31] MEDS ORDERED: ONDANSETRON 4 MG/2 ML INJ IV PRN (21:34)
[2019-10-31] MEDS ORDERED: INSULIN LISPRO 100 UNIT/ML SUB-Q ONE (21:40)
[2019-10-31] MEDS ORDERED: cloNIDine 0.1 MG TAB PO SCH (22:00)
[2019-11-01 00:53] LABS: Bilirubin,Urine NEG (Negative); Blood,Urine NEG (Negative); Color,Urine Straw (Yellow); Mucus,Urine FEW /HPF; Protein,Urine <15 mg/dL mg/dL (Negative); Urobilinogen,Urine < 2.0 mg/dL (<2.0); WBC,Urine < 1.0 /HPF (0.0-6.0)
[2019-11-01] MEDS: HEPARIN 5,000 UNIT/1 ML VIAL SUB-Q SCH ×3 (01:03→22:03)
[2019-11-01] MEDS: SODIUM CHLORIDE 0.9% 1000 ML 1,000 ML IV SCH (01:04)
[2019-11-01 06:03] LABS: Basophils # (Auto) 0.2 K/mm3 (0.0-0.1); Eosinophils # (Auto) 0.3 K/mm3 (0.0-0.4); Eosinophils % (Auto) 2.9 % (0.0-4.3); Hematocrit 32.8 % (35.5-45.6); Lymphocytes # (Auto) 1.8 K/mm3 (1.2-5.4); Lymphocytes % (Auto) 16.9 % (13.4-35.0); Mean Corpuscular HGB Conc 31 % (32-34); Monocytes # (Auto) 1.6 K/mm3 (0.0-0.8); Monocytes % (Auto) 15.4 % (0.0-7.3); Platelet Count 659 K/mm3 (140-440); Red Blood Count 5.39 M/mm3 (3.65-5.03)
[2019-11-01 06:13] LABS: Mean Corpuscular Volume 61 fl (84-94); Red Cell Distribution Width 23.1 % (13.2-15.2)
[2019-11-01 06:25] LABS: Alanine Aminotransferase 13 units/L (7-56); Albumin 3.4 g/dL (3.9-5); BUN/Creatinine Ratio 10; Blood Urea Nitrogen 8 mg/dL (9-20); Calcium 8.6 mg/dL (8.4-10.2); Hemolysis Index 4
[2019-11-01] MEDS ORDERED: REGADENOSON 0.4 MG/5 ML INJ IV ONE (07:27)
[2019-11-01] MEDS ORDERED: NON-FORMULARY EACH (Losartan/Hydrochlorothiazide [Losartan-Hctz 100-25 Mg Tab] 1 EACH) PO SCH (10:00)
[2019-11-01] MEDS ORDERED: hydroCHLOROthiazide 12.5 MG CAP PO SCH (10:00)
[2019-11-01] MEDS: TAMSULOSIN 0.4 MG CAP PO SCH ×3 (10:59→22:03)
[2019-11-01] MEDS: PRAVASTATIN 20 MG TAB PO SCH ×2 (10:59→22:03)
[2019-11-01] MEDS: LOSARTAN 50 MG TAB PO SCH (11:05)
[2019-11-01] MEDS: MEMANTINE 10 MG TAB PO SCH (11:06)
[2019-11-01] MEDS: amLODIPine 10 MG TAB PO SCH (11:06)
[2019-11-01] MEDS: ASPIRIN 81 MG TAB CHEW PO SCH (11:06)
[2019-11-01] MEDS: hydroCHLOROthiazide 25 MG TAB PO SCH (11:06)
[2019-11-01] MEDS: cefTRIAXone/NS 1 GM/50 ML 1 GM/50 ML BAG IV SCH (11:07)
--- NOTE | 2019-11-01 11:42 | Consultation ---
History of Present Illness Consult date: 11/01/19 Consult reason: other (Abnormal ECG) History of present illness: This is an 83-year old male who was referred to the emergency department with al tered mental status and generalized weakness. It's also reported the patient was found on the floor two nights ago. It is unclear if he had a mechanical fall or syncopized. Head CT reports no acute intracranial abnormalities and a chest x- ray is negative. His presenting ECG is sinus rhythm, 2nd degree AV block and RBBB. TSH at 1.5. A cardiac consultation has been requested for further evaluation and recommendations. Medications and Allergies Allergies Allergy/AdvReac Type Severity Reaction Status Date / Time No Known Allergies Allergy Unverified 06/18/13 19:31 Home Medications Medication Instructions Recorded Confirmed Last Taken Type Aspirin [Aspirin BABY CHEW TAB] 81 mg PO QDAY #30 tab.chew 06/20/13 10/31/19 1 Day Ago Rx ~10/30/19 Amlodipine Besylate [Norvasc] 10 mg PO DAILY 10/31/19 10/31/19 1 Day Ago History ~10/30/19 Clonidine HCl [Kapvay] 0.1 mg PO QHS 10/31/19 10/31/19 1 Day Ago History ~10/30/19 Losartan/Hydrochlorothiazide 1 each PO DAILY 10/31/19 10/31/19 1 Day Ago History [Losartan-Hctz 100-25 mg Tab] ~10/30/19 Memantine HCl 10 mg PO DAILY 10/31/19 10/31/19 1 Day Ago History ~10/30/19 Pravastatin Sodium [Pravastatin] 20 mg PO QHS 10/31/19 10/31/19 1 Day Ago History ~10/30/19 Tamsulosin [Flomax] 0.4 mg PO BID 10/31/19 10/31/19 1 Day Ago History ~10/30/19 glipiZIDE XL [Glucotrol Xl] 10 mg PO QHS 10/31/19 10/31/19 1 Day Ago History ~10/30/19 hydroCHLOROthiazide [Hctz] 12.5 mg PO QDAY 10/31/19 10/31/19 1 Day Ago History ~10/30/19 Active Meds: Active Medications Acetaminophen (Tylenol) 650 mg PO Q4H PRN PRN Reason: Pain MILD(1-3)/Fever >100.5/MORALES Amlodipine Besylate (Amlodipine) 10 mg PO DAILY [facility] Last Admin: 11/01/19 11:06 Dose: 10 mg Documented by: Aspirin (Baby Aspirin) 81 mg PO QDAY [facility] Last Admin: 11/01/19 11:06 Dose: 81 mg Documented by: Glipizide (Glucotrol Xl) 10 mg PO QHS [facility] Last Admin: 11/01/19 10:59 Dose: Not Given Documented by: Heparin Sodium (Porcine) (Heparin) 5,000 unit SUB-Q Q12HR [facility] Last Admin: 11/01/19 11:06 Dose: 5,000 unit Documented by: Hydrochlorothiazide (Hctz) 25 mg PO QDAY [facility] Last Admin: 11/01/19 11:06 Dose: 25 mg Documented by: Hydromorphone HCl (Dilaudid) 0.5 mg IV Q3H PRN PRN Reason: Pain , Severe (7-10) Ceftriaxone Sodium (Rocephin/Ns 1 Gm/50 Ml) 1 gm in 50 mls @ 100 mls/hr IV Q24HR [facility]; Protocol Stop: 11/02/19 10:29 Last Admin: 11/01/19 11:07 Dose: 100 mls/hr Documented by: Sodium Chloride (Nacl 0.9% 1000 Ml) 1,000 mls @ 75 mls/hr IV DIRECT [facility] Last Admin: 11/01/19 01:04 Dose: 75 mls/hr Documented by: Losartan Potassium (Cozaar) 100 mg PO QDAY [facility] Last Admin: 11/01/19 11:05 Dose: 100 mg Documented by: Memantine (Memantine) 10 mg PO DAILY [facility] Last Admin: 11/01/19 11:06 Dose: 10 mg Documented by: Ondansetron HCl (Zofran) 4 mg IV Q8H PRN PRN Reason: Nausea And Vomiting Oxycodone/Acetaminophen (Percocet 5/325) 1 tab PO Q6H PRN PRN Reason: Pain, Moderate (4-6) Pravastatin Sodium (Pravachol) 20 mg PO QHS [facility] Last Admin: 11/01/19 10:59 Dose: Not Given Documented by: Sodium Chloride (Sodium Chloride Flush Syringe 10 Ml) 10 ml IV BID [facility] Last Admin: 11/01/19 11:06 Dose: 10 ml Documented by: Sodium Chloride (Sodium Chloride Flush Syringe 10 Ml) 10 ml IV PRN PRN PRN Reason: LINE FLUSH Tamsulosin HCl (Flomax) 0.4 mg PO BID [facility] Last Admin: 11/01/19 11:05 Dose: 0.4 mg Documented by: Zolpidem Tartrate (Ambien) 5 mg PO QHS PRN PRN Reason: Insomnia Physical Examination Vital Signs Pulse Resp Pulse Ox 62 22 97 10/31/19 12:30 10/31/19 12:30 10/31/19 12:30 General appearance: no acute distress Cardiac: Positive: Bradycardia Results 11/01/19 05:35 11/01/19 05:35 Cardiac Enzymes 10/31/19 11/01/19 Range/Units Unknown 05:35 AST 56 H 35 (5-40) units/L Coagulation 10/31/19 Range/Units Unknown PT 16.9 H (12.2-14.9) Sec. INR 1.35 H (0.87-1.13) CBC 10/31/19 11/01/19 Range/Units 11:51 05:35 WBC 16.3 H 10.7 (4.5-11.0) K/mm3 RBC 5.14 H 5.39 H (3.65-5.03) M/mm3 Hgb 9.4 L 10.0 L (11.8-15.2) gm/dl Hct 30.8 L 32.8 L (35.5-45.6) % Plt Count 683 H 659 H (140-440) K/mm3 Lymph # 1.8 (1.2-5.4) K/mm3 [place] # 1.6 H (0.0-0.8) K/mm3 Eos # 0.3 (0.0-0.4) K/mm3 Baso # 0.2 H (0.0-0.1) K/mm3 Comprehensive Metabolic Panel 10/31/19 10/31/19 11/01/19 Range/Units 11:51 Unknown 05:35 Sodium 132 L 129 L 138 D (137-145) mmol/L Potassium 4.2 5.0 3.9 D (3.6-5.0) mmol/L Chloride 95.2 L 91.8 L 102.2 (98-107) mmol/L Carbon Dioxide 23 23 21 L (22-30) mmol/L BUN 15 15 8 L (9-20) mg/dL Creatinine 0.8 0.8 0.8 (0.8-1.5) mg/dL Glucose 70 L 85 97 (75-100) mg/dL Calcium 8.9 9.0 8.6 (8.4-10.2) mg/dL Direct Bilirubin < 0.2 (0-0.2) mg/dL AST 56 H 35 (5-40) units/L ALT 15 13 (7-56) units/L Alkaline Phosphatase 45 46 (35-129) units/L Total Protein 6.8 6.1 L (6.3-8.2) g/dL Albumin 3.9 3.4 L (3.9-5) g/dL Assessment and Plan - Patient Problems (1) Syncope and collapse Current Visit: Yes Status: Acute (2) Second degree AV block Current Visit: Yes Status: Acute (3) Dementia Current Visit: Yes Status: Acute
--- NOTE | 2019-11-01 14:09 | Vascular Lab Report ---
Bilateral Carotid Doppler Ultrasound INDICATION : Syncope and collapse TECHNIQUE: Grayscale and color Doppler imaging performed through the neck. COMPARISON: None FINDINGS: Right: There is mild atherosclerotic disease in the carotid bulb and proximal ICA. Peak systolic ve locity in the CCA is 86 cm/s with end-diastolic velocity of 8 cm/s. Peak systolic velocity in the pro ximal ICA is 112 cm/s with end-diastolic velocity of 7 cm/s. ICA to CCA ratio is less than 2. There i s antegrade flow in the ECA and the vertebral artery. Left: There is mild atherosclerotic disease in the carotid bulb and proximal ICA. Peak systolic veloc ity in the CCA is 89 cm/s with end-diastolic velocity of 6 cm/s. Peak systolic velocity in the proxim al ICA is 116 cm/s with end-diastolic velocity of 11 cm/s. ICA to CCA ratio is less than 2. There is antegrade flow in the ECA and the vertebral artery. IMPRESSION: No hemodynamically significant stenosis by NASCET criteria. Signer Name: Titi Severino MD Signed: 11/01/2019 2:05 PM Workstation Name: [id number]
--- NOTE | 2019-11-01 20:00 | Progress Note ---
Assessment and Plan Assessment and plan: --Second degree AV block Current Visit: Yes Status: Acute Cardiology evaluation recommendations noted and appreciated Syncope work-up in progress Stop AV anne blockers --Syncope and collapse Current Visit: Yes Status: Acute Follow syncope work-up Carotid duplex scan Cardiology canceled Lexiscan Follow echocardiogram -- Anemia Current Visit: Yes Status: Acute Anemia work-up, closely monitor H&H -- Hyponatremia Current Visit: Yes Status: Acute IV normal saline , sodium levels improved --Hypertension Current Visit: Yes Status: Chronic Moderate control ,continue antihypertensives Stop AV anne blockers.due to bradycardia and second-degree block --T2DM (type 2 diabetes mellitus) Current Visit: Yes Status: Chronic Accu-Chek sliding scale coverage ADA diet hemoglobin A1c to be checked -- Hyperlipemia Current Visit: No Status: Chronic Continue statins, low-cholesterol diet -- DVT prophylaxis Current Visit: Yes Status: Acute. On heparin and GI prophylaxis --full CODE STATUS; Disposition; follow syncope work-up Follow cardiology evaluation and recommendations Possible discharge in 1 to 2 days if stable History Interval history: Patient seen and examined Patient's chart, medications reviewed Patient admitted with syncope, bradycardia AV anne blockers held Cardiology evaluation noted and appreciated Vital signs noted Hospitalist Physical - Constitutional Vitals: Temp Pulse Resp BP Pulse Ox 98.2 F 61 16 150/45 97 11/01/19 04:52 11/01/19 15:00 11/01/19 04:52 11/01/19 11:06 11/01/19 04:52 General appearance: Present: no acute distress, well-nourished - EENT Eyes: Present: PERRL, EOM intact - Neck Neck: Present: supple, normal ROM - Respiratory Respiratory effort: normal Respiratory: bilateral: diminished, negative: rales, rhonchi, wheezing - Cardiovascular Rhythm: regular Heart Sounds: Present: S1 & S2 - Extremities Extremities: no ischemia, No edema - Abdominal General gastrointestinal: soft, non-tender, non-distended, normal bowel sounds - Integumentary Integumentary: Present: clear, warm - Psychiatric Psychiatric: appropriate mood/affect, cooperative - Neurologic Neurologic: moves all extremities MILTON score - Milton Score Age > 65: (1) Yes Aspirin use within the Past 7 Days: (0) No 3 or more CAD Risk Factors: (1) Yes 2 or more Angina events in past 24 hrs: (1) Yes Known CAD with more than 50% Stenosis: (0) No Elevated Cardiac Markers: (0) No ST Deviation Greater than 0.5mm: (0) No MILTON Score: 3 Results - Labs CBC & Chem 7: 11/01/19 05:35 11/01/19 05:35 Labs: Laboratory Last Values WBC 10.7 K/mm3 (4.5-11.0) 11/01/19 05:35 RBC 5.39 M/mm3 (3.65-5.03) H 11/01/19 05:35 Hgb 10.0 gm/dl (11.8-15.2) L 11/01/19 05:35 Hct 32.8 % (35.5-45.6) L 11/01/19 05:35 MCV 61 fl (84-94) L 11/01/19 05:35 MCH 19 pg (28-32) L 11/01/19 05:35 MCHC 31 % (32-34) L 11/01/19 05:35 RDW 23.1 % (13.2-15.2) H 11/01/19 05:35 Plt Count 659 K/mm3 (140-440) H 11/01/19 05:35 Lymph % (Auto) 16.9 % (13.4-35.0) 11/01/19 05:35 Storey % (Auto) 15.4 % (0.0-7.3) H 11/01/19 05:35 Eos % (Auto) 2.9 % (0.0-4.3) 11/01/19 05:35 Baso % (Auto) 2.0 % (0.0-1.8) H 11/01/19 05:35 Lymph # 1.8 K/mm3 (1.2-5.4) 11/01/19 05:35 Storey # 1.6 K/mm3 (0.0-0.8) H 11/01/19 05:35 Eos # 0.3 K/mm3 (0.0-0.4) 11/01/19 05:35 Baso # 0.2 K/mm3 (0.0-0.1) H 11/01/19 05:35 Add Manual Diff Complete 10/31/19 11:51 Total Counted 100 10/31/19 11:51 Seg Neutrophils % 62.8 % (40.0-70.0) 11/01/19 05:35 Seg Neuts % (Manual) 88.0 % (40.0-70.0) H 10/31/19 11:51 Band Neutrophils % 0 % 10/31/19 11:51 Lymphocytes % (Manual) 4.0 % (13.4-35.0) L 10/31/19 11:51 Reactive Lymphs % (Man) 0 % 10/31/19 11:51 Monocytes % (Manual) 6.0 % (0.0-7.3) 10/31/19 11:51 Eosinophils % (Manual) 1.0 % (0.0-4.3) 10/31/19 11:51 Basophils % (Manual) 1.0 % (0.0-1.8) 10/31/19 11:51 Metamyelocytes % 0 % 10/31/19 11:51 Myelocytes % 0 % 10/31/19 11:51 Promyelocytes % 0 % 10/31/19 11:51 Blast Cells % 0 % 10/31/19 11:51 Nucleated RBC % Not Reportable 10/31/19 11:51 Seg Neutrophils # 6.7 K/mm3 (1.8-7.7) 11/01/19 05:35 Seg Neutrophils # Man 14.3 K/mm3 (1.8-7.7) H 10/31/19 11:51 Band Neutrophils # 0.0 K/mm3 10/31/19 11:51 Lymphocytes # (Manual) 0.7 K/mm3 (1.2-5.4) L 10/31/19 11:51 Abs React Lymphs (Man) 0.0 K/mm3 10/31/19 11:51 Monocytes # (Manual) 1.0 K/mm3 (0.0-0.8) H 10/31/19 11:51 Eosinophils # (Manual) 0.2 K/mm3 (0.0-0.4) 10/31/19 11:51 Basophils # (Manual) 0.2 K/mm3 (0.0-0.1) H 10/31/19 11:51 Metamyelocytes # 0.0 K/mm3 10/31/19 11:51 Myelocytes # 0.0 K/mm3 10/31/19 11:51 Promyelocytes # 0.0 K/mm3 10/31/19 11:51 Blast Cells # 0.0 K/mm3 10/31/19 11:51 WBC Morphology Not Reportable 10/31/19 11:51 Hypersegmented Neuts Not Reportable 10/31/19 11:51 Hyposegmented Neuts Not Reportable 10/31/19 11:51 Hypogranular Neuts Not Reportable 10/31/19 11:51 Smudge Cells Not Reportable 10/31/19 11:51 Toxic Granulation Not Reportable 10/31/19 11:51 Toxic Vacuolation Not Reportable 10/31/19 11:51 Dohle Bodies Not Reportable 10/31/19 11:51 Pelger-Huet Anomaly Not Reportable 10/31/19 11:51 Riaz Rods Not Reportable 10/31/19 11:51 Platelet Estimate Consistent w auto 10/31/19 11:51 Clumped Platelets Not Reportable 10/31/19 11:51 Plt Clumps, EDTA Not Reportable 10/31/19 11:51 Large Platelets Not Reportable 10/31/19 11:51 Giant Platelets Not Reportable 10/31/19 11:51 Platelet Satelliting Not Reportable 10/31/19 11:51 Plt Morphology Comment Not Reportable 10/31/19 11:51 RBC Morphology Not Reportable 10/31/19 11:51 Dimorphic RBCs Not Reportable 10/31/19 11:51 Polychromasia Not Reportable 10/31/19 11:51 Hypochromasia 2+ 10/31/19 11:51 Poikilocytosis Not Reportable 10/31/19 11:51 Anisocytosis 1+ 10/31/19 11:51 Microcytosis 2+ 10/31/19 11:51 Macrocytosis Not Reportable 10/31/19 11:51 Spherocytes Not Reportable 10/31/19 11:51 Pappenheimer Bodies Not Reportable 10/31/19 11:51 Sickle Cells Not Reportable 10/31/19 11:51 Target Cells Not Reportable 10/31/19 11:51 Tear Drop Cells Not Reportable 10/31/19 11:51 Ovalocytes Not Reportable 10/31/19 11:51 Helmet Cells Not Reportable 10/31/19 11:51 [place] Bodies Not Reportable 10/31/19 11:51 Harshaw Rings Not Reportable 10/31/19 11:51 Nain Cells Not Reportable 10/31/19 11:51 Bite Cells Not Reportable 10/31/19 11:51 Crenated Cell Not Reportable 10/31/19 11:51 Elliptocytes 1+ 10/31/19 11:51 Acanthocytes (Spur) Not Reportable 10/31/19 11:51 Rouleaux Not Reportable 10/31/19 11:51 Hemoglobin C Crystals Not Reportable 10/31/19 11:51 Schistocytes Not Reportable 10/31/19 11:51 Malaria parasites Not Reportable 10/31/19 11:51 Wade Bodies Not Reportable 10/31/19 11:51 Hem Pathologist Commnt No 10/31/19 11:51 PT 16.9 Sec. (12.2-14.9) H 10/31/19 Unknown INR 1.35 (0.87-1.13) H 10/31/19 Unknown Sodium 138 mmol/L (137-145) D 11/01/19 05:35 Potassium 3.9 mmol/L (3.6-5.0) D 11/01/19 05:35 Chloride 102.2 mmol/L (98-107) 11/01/19 05:35 Carbon Dioxide 21 mmol/L (22-30) L 11/01/19 05:35 Anion Gap 19 mmol/L 11/01/19 05:35 BUN 8 mg/dL (9-20) L 11/01/19 05:35 Creatinine 0.8 mg/dL (0.8-1.5) 11/01/19 05:35 Estimated GFR > 60 ml/min 11/01/19 05:35 BUN/Creatinine Ratio 10 % 11/01/19 05:35 Glucose 97 mg/dL (75-100) 11/01/19 05:35 POC Glucose 180 (70-105) H 11/01/19 13:18 Hemoglobin A1c 5.6 % (4-6) 11/01/19 05:35 Lactic Acid 1.20 mmol/L (0.7-2.0) 10/31/19 Unknown Calcium 8.6 mg/dL (8.4-10.2) 11/01/19 05:35 Magnesium 2.00 mg/dL (1.7-2.3) 10/31/19 16:34 Total Bilirubin 0.50 mg/dL (0.1-1.2) 11/01/19 05:35 Direct Bilirubin < 0.2 mg/dL (0-0.2) 10/31/19 Unknown AST 35 units/L (5-40) 11/01/19 05:35 ALT 13 units/L (7-56) 11/01/19 05:35 Alkaline Phosphatase 46 units/L (35-129) 11/01/19 05:35 Troponin T < 0.010 ng/mL (0.00-0.029) 11/01/19 05:35 Total Protein 6.1 g/dL (6.3-8.2) L 11/01/19 05:35 Albumin 3.4 g/dL (3.9-5) L 11/01/19 05:35 Albumin/Globulin Ratio 1.3 % 11/01/19 05:35 TSH 1.540 mlU/mL (0.270-4.200) 10/31/19 16:34 Urine Color Straw (Yellow) 11/01/19 00:00 Urine Turbidity Clear (Clear) 11/01/19 00:00 Urine pH 6.0 (5.0-7.0) 11/01/19 00:00 Ur Specific [place] 1.005 (1.003-1.030) 11/01/19 00:00 Urine Protein <15 mg/dl mg/dL (Negative) 11/01/19 00:00 Urine Glucose (UA) Neg mg/dL (Negative) 11/01/19 00:00 Urine Ketones Neg mg/dL (Negative) 11/01/19 00:00 Urine Blood Neg (Negative) 11/01/19 00:00 Urine Nitrite Neg (Negative) 11/01/19 00:00 Urine Bilirubin Neg (Negative) 11/01/19 00:00 Urine Urobilinogen < 2.0 mg/dL (<2.0) 11/01/19 00:00 Ur Leukocyte Esterase Neg (Negative) 11/01/19 00:00 Urine WBC (Auto) < 1.0 /HPF (0.0-6.0) 11/01/19 00:00 Urine RBC (Auto) 2.0 /HPF (0.0-6.0) 11/01/19 00:00 U Epithel Cells (Auto) 1.0 /HPF (0-13.0) 11/01/19 00:00 Urine Mucus Few /HPF 11/01/19 00:00 Active Medications - Current Medications Current Medications: Generic Name Dose Route Start Last Admin Trade Name Freq PRN Reason Stop Dose Admin Acetaminophen 650 mg 10/31/19 21:34 Tylenol PO Q4H PRN Pain MILD(1-3)/Fever >100.5/MORALES Amlodipine Besylate 10 mg 11/01/19 10:00 11/01/19 11:06 Amlodipine PO 10 mg DAILY DEION Administration Aspirin 81 mg 11/01/19 10:00 11/01/19 11:06 Baby Aspirin PO 81 mg QDAY DEION Administration Glipizide 10 mg 10/31/19 22:00 11/01/19 10:59 Glucotrol Xl PO Not Given QHS DEION Heparin Sodium (Porcine) 5,000 unit 10/31/19 22:00 11/01/19 11:06 Heparin SUB-Q 5,000 unit Q12HR DEION Administration Hydrochlorothiazide 25 mg 11/01/19 10:00 11/01/19 11:06 Hctz PO 25 mg QDAY DEION Administration Hydromorphone HCl 0.5 mg 10/31/19 21:34 Dilaudid IV Q3H PRN Pain , Severe (7-10) Ceftriaxone Sodium 1 gm in 50 mls @ 100 mls/hr 10/31/19 13:00 11/01/19 17:20 Rocephin/Ns 1 Gm/50 Ml IV 11/02/19 10:29 Infused Q24HR DEION Infusion Protocol Sodium Chloride 1,000 mls @ 75 mls/hr 10/31/19 21:45 11/01/19 01:04 Nacl 0.9% 1000 Ml IV 75 mls/hr DIRECT DEION Administration Losartan Potassium 100 mg 11/01/19 10:00 11/01/19 11:05 Cozaar PO 100 mg QDAY DEION Administration Memantine 10 mg 11/01/19 10:00 11/01/19 11:06 Memantine PO 10 mg DAILY DEION Administration Ondansetron HCl 4 mg 10/31/19 21:34 Zofran IV Q8H PRN Nausea And Vomiting Oxycodone/Acetaminophen 1 tab 10/31/19 21:34 Percocet 5/325 PO Q6H PRN Pain, Moderate (4-6) Pravastatin Sodium 20 mg 10/31/19 22:00 11/01/19 10:59 Pravachol PO Not Given QHS DEION Sodium Chloride 10 ml 10/31/19 22:00 11/01/19 11:06 Sodium Chloride Flush Syringe 10 Ml IV 10 ml BID DEION Administration Sodium Chloride 10 ml 10/31/19 21:34 Sodium Chloride Flush Syringe 10 Ml IV PRN PRN LINE FLUSH Tamsulosin HCl 0.4 mg 10/31/19 22:00 11/01/19 11:05 Flomax PO 0.4 mg BID DEION Administration Zolpidem Tartrate 5 mg 10/31/19 21:34 Ambien PO QHS PRN Insomnia Nutrition/Malnutrition Assess - Dietary Evaluation Nutrition/Malnutrition Findings: Nutrition Notes Start: 11/01/19 12:25 Freq: Status: Active Protocol: Document 11/01/19 12:25 CW (Rec: 11/01/19 12:45 CW [id number]) Co-Sign 11/01/19 12:25 LP Nutrition Notes Need for Assessment generated from: MD Order,research environmental engineer,Education Initial or Follow up Assessment Current Diagnosis Hypertension,Hyperlipidemia Other Pertinent Diagnosis anemia, hypoglycemia,dementia, hyponatremia Current Diet Cardiac Consistent CHO Labs/Tests HgbA1C 5.6 10/31/2019: BG 70 Pertinent Medications NS at 75 ml/hr Height 5 ft 9 in Weight 90.7 kg Usual Body Weight 81.8 kg [place] Body Weight (kg) 72.72 BMI 29.5 Intake Prior to Admission Fair Weight change and time frame wt gain noted Weight Status Overweight Subjective/Other Information MD Consult for poor PO intake. RN Screen for new DM. Pt stated UBW of 180 lbs. Pt reported having an appetite and only eating 50% of meals on 10/31/2019. D/T hypoglycemia, pt provided with CHO counting diet education in order to improve CHO intakes. Burn Absent Trauma Absent GI Symptoms None Current % PO Fair (50-74%) Minimum of two criteria No Reduced [employer] Strength Measurably Reduced (severe) #2 Nutrition Diagnosis Food and nutrition-related knowledge deficit Etiology Pt needing education R/T hypoglycemia As Evidenced by Signs and Symptoms BG of 70, hypogylcemia diagnosis #1 Nutrition Diagnosis Inadequate oral intake Etiology Advanced age As Evidenced by Signs and Symptoms Pt eating 50% of meals; pt needing ONS Is patient on ventilator? No Is Patient Ambulatory and/or Out of Bed Yes REE-([facility]-ambulatory/OOB) [ [id number] [id number]] Calculation Used for Recommendations [facility] Additional Notes Protein needs: 73 - 91 g(0.8 - 1 g/kgBW) fluid needs: 1 ml/kcal Nutrition Intervention Change Diet Order: Continue Cardiac Consistent CHO Add Supplement/Snack (indicate name/kcal Glucerna Daily /protein ) Provides kCal: 350 Provides Protein (gm) 10 Teaching Recipient Patient Learning Readiness Fair Teaching Methods Discussion,Handout Response to Teaching Verbalize understanding Education Handouts Provided CHO Counting Barriers to Learning Age related RD phone number provided Yes Patient aware of follow up options Yes Goal #1 Increase CHO intake Goal #2 Meet at least 75% of kcal/pro needs via PO and ONS Anticipated Discharge Needs: Cardiac Consistent CHO diet and ONS Daily Follow-Up By: 11/03/19 Additional Comments F/U stable intakes and ONS
[2019-11-02] MEDS: ZOLPIDEM 5 MG TAB PO PRN ×2 (01:43→21:56)
[2019-11-02] MEDS: SODIUM CHLORIDE 0.9% 1000 ML 1,000 ML IV SCH ×2 (06:00→21:57)
--- NOTE | 2019-11-02 08:31 | Progress Note ---
Assessment and Plan Assessment and plan: --Syncope and collapse Current Visit: Yes Status: Acute Syncope work-up negative Fall precautions, PT OT, Check orthostats Syncope work-up so far; CT head without contrast; no acute abnormality Carotid Doppler; no hemodynamically significant stenosis Echocardiogram; EF 60 to 65% No evidence of pulmonary hypertension Chest x-ray; no acute abnormality noted Stress test; canceled by cardiology --Second degree AV block Current Visit: Yes Status: Acute Management per cardiology Syncope work-up negative Stop AV anne blockers --Symptomatic Bradycardia: Syncopal episode,Fall precautions PT,OT, management per cardiology -- Anemia Current Visit: Yes Status: Acute Anemia work-up, closely monitor H&H. --Thrombocytosis; Platelet count 683, trending down to 659 today Out pt hematology evaluation Upon discharge -- Hyponatremia Current Visit: Yes Status: Acute IV normal saline , resolved --Hypertension Current Visit: Yes Status: Chronic Moderate control ,continue antihypertensives Stop AV anne blockers.due to bradycardia and second-degree block --T2DM (type 2 diabetes mellitus) Current Visit: Yes Status: Chronic Accu-Chek sliding scale coverage ADA diet hemoglobin A1c to be checked. --Dementia; Supportive care. Resume home medications -- Hyperlipemia Current Visit: No Status: Chronic Continue statins, low-cholesterol diet -- DVT prophylaxis Current Visit: Yes Status: Acute. On heparin and GI prophylaxis --full CODE STATUS; Monitor closely and adjust management as needed History Interval history: Patient seen and examined at bedside this morning medical records reviewed Admitted with symptomatic bradycardia, and second-degree AV block AV anne blocking agents discontinued, patient's heart rate improved Elderly male patient, with history of dementia Is alert and awake, confused at times[his baseline per family] Vital signs reviewed Hospitalist Physical - Constitutional Vitals: Temp Pulse Resp BP Pulse Ox 99.2 F 73 16 172/57 98 11/02/19 04:22 11/02/19 04:22 11/02/19 04:22 11/02/19 04:22 11/02/19 04:22 General appearance: Present: no acute distress, well-nourished - EENT Eyes: Present: PERRL, EOM intact - Neck Neck: Present: supple, normal ROM - Respiratory Respiratory effort: normal Respiratory: bilateral: diminished, negative: rales, rhonchi, wheezing - Cardiovascular Rhythm: regular Heart Sounds: Present: S1 & S2 - Extremities Extremities: no ischemia, No edema - Abdominal General gastrointestinal: soft, non-tender, non-distended, normal bowel sounds - Integumentary Integumentary: Present: clear, warm - Psychiatric Psychiatric: appropriate mood/affect, cooperative, other (Confused at times) - Neurologic Neurologic: moves all extremities MILTON score - Milton Score Age > 65: (1) Yes Aspirin use within the Past 7 Days: (0) No 3 or more CAD Risk Factors: (1) Yes 2 or more Angina events in past 24 hrs: (1) Yes Known CAD with more than 50% Stenosis: (0) No Elevated Cardiac Markers: (0) No ST Deviation Greater than 0.5mm: (0) No MILTON Score: 3 Results - Labs CBC & Chem 7: 11/01/19 05:35 11/01/19 05:35 Labs: Laboratory Last Values WBC 10.7 K/mm3 (4.5-11.0) 11/01/19 05:35 RBC 5.39 M/mm3 (3.65-5.03) H 11/01/19 05:35 Hgb 10.0 gm/dl (11.8-15.2) L 11/01/19 05:35 Hct 32.8 % (35.5-45.6) L 11/01/19 05:35 MCV 61 fl (84-94) L 11/01/19 05:35 MCH 19 pg (28-32) L 11/01/19 05:35 MCHC 31 % (32-34) L 11/01/19 05:35 RDW 23.1 % (13.2-15.2) H 11/01/19 05:35 Plt Count 659 K/mm3 (140-440) H 11/01/19 05:35 Lymph % (Auto) 16.9 % (13.4-35.0) 11/01/19 05:35 Casey % (Auto) 15.4 % (0.0-7.3) H 11/01/19 05:35 Eos % (Auto) 2.9 % (0.0-4.3) 11/01/19 05:35 Baso % (Auto) 2.0 % (0.0-1.8) H 11/01/19 05:35 Lymph # 1.8 K/mm3 (1.2-5.4) 11/01/19 05:35 Casey # 1.6 K/mm3 (0.0-0.8) H 11/01/19 05:35 Eos # 0.3 K/mm3 (0.0-0.4) 11/01/19 05:35 Baso # 0.2 K/mm3 (0.0-0.1) H 11/01/19 05:35 Add Manual Diff Complete 10/31/19 11:51 Total Counted 100 10/31/19 11:51 Seg Neutrophils % 62.8 % (40.0-70.0) 11/01/19 05:35 Seg Neuts % (Manual) 88.0 % (40.0-70.0) H 10/31/19 11:51 Band Neutrophils % 0 % 10/31/19 11:51 Lymphocytes % (Manual) 4.0 % (13.4-35.0) L 10/31/19 11:51 Reactive Lymphs % (Man) 0 % 10/31/19 11:51 Monocytes % (Manual) 6.0 % (0.0-7.3) 10/31/19 11:51 Eosinophils % (Manual) 1.0 % (0.0-4.3) 10/31/19 11:51 Basophils % (Manual) 1.0 % (0.0-1.8) 10/31/19 11:51 Metamyelocytes % 0 % 10/31/19 11:51 Myelocytes % 0 % 10/31/19 11:51 Promyelocytes % 0 % 10/31/19 11:51 Blast Cells % 0 % 10/31/19 11:51 Nucleated RBC % Not Reportable 10/31/19 11:51 Seg Neutrophils # 6.7 K/mm3 (1.8-7.7) 11/01/19 05:35 Seg Neutrophils # Man 14.3 K/mm3 (1.8-7.7) H 10/31/19 11:51 Band Neutrophils # 0.0 K/mm3 10/31/19 11:51 Lymphocytes # (Manual) 0.7 K/mm3 (1.2-5.4) L 10/31/19 11:51 Abs React Lymphs (Man) 0.0 K/mm3 10/31/19 11:51 Monocytes # (Manual) 1.0 K/mm3 (0.0-0.8) H 10/31/19 11:51 Eosinophils # (Manual) 0.2 K/mm3 (0.0-0.4) 10/31/19 11:51 Basophils # (Manual) 0.2 K/mm3 (0.0-0.1) H 10/31/19 11:51 Metamyelocytes # 0.0 K/mm3 10/31/19 11:51 Myelocytes # 0.0 K/mm3 10/31/19 11:51 Promyelocytes # 0.0 K/mm3 10/31/19 11:51 Blast Cells # 0.0 K/mm3 10/31/19 11:51 WBC Morphology Not Reportable 10/31/19 11:51 Hypersegmented Neuts Not Reportable 10/31/19 11:51 Hyposegmented Neuts Not Reportable 10/31/19 11:51 Hypogranular Neuts Not Reportable 10/31/19 11:51 Smudge Cells Not Reportable 10/31/19 11:51 Toxic Granulation Not Reportable 10/31/19 11:51 Toxic Vacuolation Not Reportable 10/31/19 11:51 Dohle Bodies Not Reportable 10/31/19 11:51 Pelger-Huet Anomaly Not Reportable 10/31/19 11:51 Riaz Rods Not Reportable 10/31/19 11:51 Platelet Estimate Consistent w auto 10/31/19 11:51 Clumped Platelets Not Reportable 10/31/19 11:51 Plt Clumps, EDTA Not Reportable 10/31/19 11:51 Large Platelets Not Reportable 10/31/19 11:51 Giant Platelets Not Reportable 10/31/19 11:51 Platelet Satelliting Not Reportable 10/31/19 11:51 Plt Morphology Comment Not Reportable 10/31/19 11:51 RBC Morphology Not Reportable 10/31/19 11:51 Dimorphic RBCs Not Reportable 10/31/19 11:51 Polychromasia Not Reportable 10/31/19 11:51 Hypochromasia 2+ 10/31/19 11:51 Poikilocytosis Not Reportable 10/31/19 11:51 Anisocytosis 1+ 10/31/19 11:51 Microcytosis 2+ 10/31/19 11:51 Macrocytosis Not Reportable 10/31/19 11:51 Spherocytes Not Reportable 10/31/19 11:51 Pappenheimer Bodies Not Reportable 10/31/19 11:51 Sickle Cells Not Reportable 10/31/19 11:51 Target Cells Not Reportable 10/31/19 11:51 Tear Drop Cells Not Reportable 10/31/19 11:51 Ovalocytes Not Reportable 10/31/19 11:51 Helmet Cells Not Reportable 10/31/19 11:51 Contreras-[employer] Bodies Not Reportable 10/31/19 11:51 [place] Rings Not Reportable 10/31/19 11:51 Nain Cells Not Reportable 10/31/19 11:51 Bite Cells Not Reportable 10/31/19 11:51 Crenated Cell Not Reportable 10/31/19 11:51 Elliptocytes 1+ 10/31/19 11:51 Acanthocytes (Spur) Not Reportable 10/31/19 11:51 Rouleaux Not Reportable 10/31/19 11:51 Hemoglobin C Crystals Not Reportable 10/31/19 11:51 Schistocytes Not Reportable 10/31/19 11:51 Malaria parasites Not Reportable 10/31/19 11:51 Wade Bodies Not Reportable 10/31/19 11:51 Hem Pathologist Commnt No 10/31/19 11:51 PT 16.9 Sec. (12.2-14.9) H 10/31/19 Unknown INR 1.35 (0.87-1.13) H 10/31/19 Unknown Sodium 138 mmol/L (137-145) D 11/01/19 05:35 Potassium 3.9 mmol/L (3.6-5.0) D 11/01/19 05:35 Chloride 102.2 mmol/L (98-107) 11/01/19 05:35 Carbon Dioxide 21 mmol/L (22-30) L 11/01/19 05:35 Anion Gap 19 mmol/L 11/01/19 05:35 BUN 8 mg/dL (9-20) L 11/01/19 05:35 Creatinine 0.8 mg/dL (0.8-1.5) 11/01/19 05:35 Estimated GFR > 60 ml/min 11/01/19 05:35 BUN/Creatinine Ratio 10 % 11/01/19 05:35 Glucose 97 mg/dL (75-100) 11/01/19 05:35 POC Glucose 180 (70-105) H 11/01/19 13:18 Hemoglobin A1c 5.6 % (4-6) 11/01/19 05:35 Lactic Acid 1.20 mmol/L (0.7-2.0) 10/31/19 Unknown Calcium 8.6 mg/dL (8.4-10.2) 11/01/19 05:35 Magnesium 2.00 mg/dL (1.7-2.3) 10/31/19 16:34 Total Bilirubin 0.50 mg/dL (0.1-1.2) 11/01/19 05:35 Direct Bilirubin < 0.2 mg/dL (0-0.2) 10/31/19 Unknown AST 35 units/L (5-40) 11/01/19 05:35 ALT 13 units/L (7-56) 11/01/19 05:35 Alkaline Phosphatase 46 units/L (35-129) 11/01/19 05:35 Troponin T < 0.010 ng/mL (0.00-0.029) 11/01/19 05:35 Total Protein 6.1 g/dL (6.3-8.2) L 11/01/19 05:35 Albumin 3.4 g/dL (3.9-5) L 11/01/19 05:35 Albumin/Globulin Ratio 1.3 % 11/01/19 05:35 TSH 1.540 mlU/mL (0.270-4.200) 10/31/19 16:34 Urine Color Straw (Yellow) 11/01/19 00:00 Urine Turbidity Clear (Clear) 11/01/19 00:00 Urine pH 6.0 (5.0-7.0) 11/01/19 00:00 Ur Specific [place] 1.005 (1.003-1.030) 11/01/19 00:00 Urine Protein <15 mg/dl mg/dL (Negative) 11/01/19 00:00 Urine Glucose (UA) Neg mg/dL (Negative) 11/01/19 00:00 Urine Ketones Neg mg/dL (Negative) 11/01/19 00:00 Urine Blood Neg (Negative) 11/01/19 00:00 Urine Nitrite Neg (Negative) 11/01/19 00:00 Urine Bilirubin Neg (Negative) 11/01/19 00:00 Urine Urobilinogen < 2.0 mg/dL (<2.0) 11/01/19 00:00 Ur Leukocyte Esterase Neg (Negative) 11/01/19 00:00 Urine WBC (Auto) < 1.0 /HPF (0.0-6.0) 11/01/19 00:00 Urine RBC (Auto) 2.0 /HPF (0.0-6.0) 11/01/19 00:00 U Epithel Cells (Auto) 1.0 /HPF (0-13.0) 11/01/19 00:00 Urine Mucus Few /HPF 11/01/19 00:00 Active Medications - Current Medications Current Medications: Generic Name Dose Route Start Last Admin Trade Name Freq PRN Reason Stop Dose Admin Acetaminophen 650 mg 10/31/19 21:34 Tylenol PO Q4H PRN Pain MILD(1-3)/Fever >100.5/MORALES Amlodipine Besylate 10 mg 11/01/19 10:00 11/01/19 11:06 Amlodipine PO 10 mg DAILY [facility] Administration Aspirin 81 mg 11/01/19 10:00 11/01/19 11:06 Baby Aspirin PO 81 mg QDAY [facility] Administration Glipizide 10 mg 10/31/19 22:00 11/01/19 22:03 Glucotrol Xl PO 10 mg QHS [facility] Administration Heparin Sodium (Porcine) 5,000 unit 10/31/19 22:00 11/01/19 22:03 Heparin SUB-Q 5,000 unit Q12HR [facility] Administration Hydrochlorothiazide 25 mg 11/01/19 10:00 11/01/19 11:06 Hctz PO 25 mg QDAY [facility] Administration Hydromorphone HCl 0.5 mg 10/31/19 21:34 Dilaudid IV Q3H PRN Pain , Severe (7-10) Ceftriaxone Sodium 1 gm in 50 mls @ 100 mls/hr 10/31/19 13:00 11/01/19 17:20 Rocephin/Ns 1 Gm/50 Ml IV 11/02/19 10:29 Infused Q24HR [facility] Infusion Protocol Sodium Chloride 1,000 mls @ 75 mls/hr 10/31/19 21:45 11/02/19 06:00 Nacl 0.9% 1000 Ml IV 75 mls/hr DIRECT [facility] Administration Losartan Potassium 100 mg 11/01/19 10:00 11/01/19 11:05 Cozaar PO 100 mg QDAY [facility] Administration Memantine 10 mg 11/01/19 10:00 11/01/19 11:06 Memantine PO 10 mg DAILY [facility] Administration Ondansetron HCl 4 mg 10/31/19 21:34 Zofran IV Q8H PRN Nausea And Vomiting Oxycodone/Acetaminophen 1 tab 10/31/19 21:34 Percocet 5/325 PO Q6H PRN Pain, Moderate (4-6) Pravastatin Sodium 20 mg 10/31/19 22:00 11/01/19 22:03 Pravachol PO 20 mg QHS [facility] Administration Sodium Chloride 10 ml 10/31/19 22:00 11/01/19 22:04 Sodium Chloride Flush Syringe 10 Ml IV 10 ml BID [facility] Administration Sodium Chloride 10 ml 10/31/19 21:34 Sodium Chloride Flush Syringe 10 Ml IV PRN PRN LINE FLUSH Tamsulosin HCl 0.4 mg 10/31/19 22:00 11/01/19 22:03 Flomax PO 0.4 mg BID [facility] Administration Zolpidem Tartrate 5 mg 10/31/19 21:34 11/02/19 01:43 Ambien PO 5 mg QHS PRN Administration Insomnia Nutrition/Malnutrition Assess - Dietary Evaluation Nutrition/Malnutrition Findings: Nutrition Notes Start: 11/01/19 12:25 Freq: Status: Active Protocol: Document 11/01/19 12:25 CW (Rec: 11/01/19 12:45 CW [id number]) Co-Sign 11/01/19 12:25 LP Nutrition Notes Need for Assessment generated from: MD Order,back office medical assistant,Education Initial or Follow up Assessment Current Diagnosis Hypertension,Hyperlipidemia Other Pertinent Diagnosis anemia, hypoglycemia,dementia, hyponatremia Current Diet Cardiac Consistent CHO Labs/Tests HgbA1C 5.6 10/31/2019: BG 70 Pertinent Medications NS at 75 ml/hr Height 5 ft 9 in Weight 90.7 kg Usual Body Weight 81.8 kg [place] Body Weight (kg) 72.72 BMI 29.5 Intake Prior to Admission Fair Weight change and time frame wt gain noted Weight Status Overweight Subjective/Other Information MD Consult for poor PO intake. RN Screen for new DM. Pt stated UBW of 180 lbs. Pt reported having an appetite and only eating 50% of meals on 10/31/2019. D/T hypoglycemia, pt provided with CHO counting diet education in order to improve CHO intakes. Burn Absent Trauma Absent GI Symptoms None Current % PO Fair (50-74%) Minimum of two criteria No Reduced Administrative Support Technician Strength Measurably Reduced (severe) #2 Nutrition Diagnosis Food and nutrition-related knowledge deficit Etiology Pt needing education R/T hypoglycemia As Evidenced by Signs and Symptoms BG of 70, hypogylcemia diagnosis #1 Nutrition Diagnosis Inadequate oral intake Etiology Advanced age As Evidenced by Signs and Symptoms Pt eating 50% of meals; pt needing ONS Is patient on ventilator? No Is Patient Ambulatory and/or Out of Bed Yes REE-([facility]-ambulatory/OOB) [ 2070.094 [id number]] Calculation Used for Recommendations [facility] Additional Notes Protein needs: 73 - 91 g(0.8 - 1 g/kgBW) fluid needs: 1 ml/kcal Nutrition Intervention Change Diet Order: Continue Cardiac Consistent CHO Add Supplement/Snack (indicate name/kcal Glucerna Daily /protein ) Provides kCal: 350 Provides Protein (gm) 10 Teaching Recipient Patient Learning Readiness Fair Teaching Methods Discussion,Handout Response to Teaching Verbalize understanding Education Handouts Provided CHO Counting Barriers to Learning Age related RD phone number provided Yes Patient aware of follow up options Yes Goal #1 Increase CHO intake Goal #2 Meet at least 75% of kcal/pro needs via PO and ONS Anticipated Discharge Needs: Cardiac Consistent CHO diet and ONS Daily Follow-Up By: 11/03/19 Additional Comments F/U stable intakes and ONS
[2019-11-02] MEDS: MEMANTINE 10 MG TAB PO SCH (09:30)
[2019-11-02] MEDS: amLODIPine 10 MG TAB PO SCH (09:31)
[2019-11-02] MEDS: TAMSULOSIN 0.4 MG CAP PO SCH ×2 (09:31→21:56)
[2019-11-02] MEDS: hydroCHLOROthiazide 25 MG TAB PO SCH (09:31)
[2019-11-02] MEDS: ASPIRIN 81 MG TAB CHEW PO SCH (09:31)
[2019-11-02] MEDS: LOSARTAN 50 MG TAB PO SCH (09:31)
[2019-11-02] MEDS: cefTRIAXone/NS 1 GM/50 ML 1 GM/50 ML BAG IV SCH (09:32)
[2019-11-02] MEDS: HEPARIN 5,000 UNIT/1 ML VIAL SUB-Q SCH ×2 (09:33→21:56)
--- NOTE | 2019-11-02 10:52 | Progress Note ---
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 Recommendations: The patient's alteration in mental status appears not related to the cardiac dysrhythmia. Recommend neurological evaluation. Further cardiac evaluation and management would depend on clinical course. Subjective Date of service: 11/02/19 Interval history: Patient is alert with confusion. Objective Vital Signs Temp Pulse Resp BP Pulse Ox 11/02/19 09:31 62 170/58 11/02/19 08:20 98.6 F 62 18 170/58 99 11/02/19 04:22 99.2 F 73 16 172/57 98 11/02/19 00:43 99.0 F 85 18 153/45 97 11/01/19 23:00 70 11/01/19 20:12 97.4 F L 73 20 159/49 96 11/01/19 17:46 98.3 F 18 158/46 11/01/19 15:00 61 11/01/19 13:32 97.5 F L 18 161/42 11/01/19 11:06 50 L 150/45 11/01/19 11:05 50 L 150/45 - Physical Examination General: No Apparent Distress Neck: Positive: trachea midline Cardiac: Positive: Irregularly Regular Lungs: Positive: Decreased Breath Sounds
--- NOTE | 2019-11-02 15:54 | Consultation ---
History of Present Illness Consult date: 11/02/19 Reason for Consult: Altered mental status Chief complaint: Altered mental status History of present illness: Patient is an 83-year-old man with a history of dementia, diabetes, hypertension, prostate CA, hyperlipidemia, CHF. 2 days ago, at 3:30 AM, the patient had fallen on his way to the restroom. When evaluated by his family at the time, he was somewhat slow to respond, however was answering questions appropriately. They are not certain if the patient had a loss of consciousness or if he just had a mechanical fall on his way to the restroom. Patient was brought to [facility] for further evaluation. He was found to have hyponatremia with sodium of 129, second-degree AV block, and bradycardia. At baseline, the patient has significant dementia, and usually does not know the year, and does not recall any recent events. He is usually unaware of his own medical history at baseline. Currently, the patient's family states that he is back at baseline mental status, and they had seen him earlier in the day. Past History Past Medical History: other (history of dementia, diabetes, hypertension, prostate CA, hyperlipidemia, CHF) Social history: lives with family Family history: no significant family history Medications and Allergies Allergies Allergy/AdvReac Type Severity Reaction Status Date / Time No Known Allergies Allergy Unverified 06/18/13 19:31 Home Medications Medication Instructions Recorded Confirmed Last Taken Type Aspirin [Aspirin BABY CHEW TAB] 81 mg PO QDAY #30 tab.chew 06/20/13 10/31/19 1 Day Ago Rx ~10/30/19 Amlodipine Besylate [Norvasc] 10 mg PO DAILY 10/31/19 10/31/19 1 Day Ago History ~10/30/19 Clonidine HCl [Kapvay] 0.1 mg PO QHS 10/31/19 10/31/19 1 Day Ago History ~10/30/19 Losartan/Hydrochlorothiazide 1 each PO DAILY 10/31/19 10/31/19 1 Day Ago History [Losartan-Hctz 100-25 mg Tab] ~10/30/19 Memantine HCl 10 mg PO DAILY 10/31/19 10/31/19 1 Day Ago History ~10/30/19 Pravastatin Sodium [Pravastatin] 20 mg PO QHS 10/31/19 10/31/19 1 Day Ago History ~10/30/19 Tamsulosin [Flomax] 0.4 mg PO BID 10/31/19 10/31/19 1 Day Ago History ~10/30/19 glipiZIDE XL [Glucotrol Xl] 10 mg PO QHS 10/31/19 10/31/19 1 Day Ago History ~10/30/19 hydroCHLOROthiazide [Hctz] 12.5 mg PO QDAY 10/31/19 10/31/19 1 Day Ago History ~10/30/19 Active Meds: Active Medications Acetaminophen (Tylenol) 650 mg PO Q4H PRN PRN Reason: Pain MILD(1-3)/Fever >100.5/MORALES Amlodipine Besylate (Amlodipine) 10 mg PO DAILY [facility] Last Admin: 11/02/19 09:31 Dose: 10 mg Documented by: Aspirin (Baby Aspirin) 81 mg PO QDAY [facility] Last Admin: 11/02/19 09:31 Dose: 81 mg Documented by: Glipizide (Glucotrol Xl) 10 mg PO QHS [facility] Last Admin: 11/01/19 22:03 Dose: 10 mg Documented by: Heparin Sodium (Porcine) (Heparin) 5,000 unit SUB-Q Q12HR [facility] Last Admin: 11/02/19 09:33 Dose: 5,000 unit Documented by: Hydrochlorothiazide (Hctz) 25 mg PO QDAY [facility] Last Admin: 11/02/19 09:31 Dose: 25 mg Documented by: Hydromorphone HCl (Dilaudid) 0.5 mg IV Q3H PRN PRN Reason: Pain , Severe (7-10) Sodium Chloride (Nacl 0.9% 1000 Ml) 1,000 mls @ 75 mls/hr IV DIRECT [facility] Last Admin: 11/02/19 06:00 Dose: 75 mls/hr Documented by: Losartan Potassium (Cozaar) 100 mg PO QDAY [facility] Last Admin: 11/02/19 09:31 Dose: 100 mg Documented by: Memantine (Memantine) 10 mg PO DAILY [facility] Last Admin: 11/02/19 09:30 Dose: 10 mg Documented by: Ondansetron HCl (Zofran) 4 mg IV Q8H PRN PRN Reason: Nausea And Vomiting Oxycodone/Acetaminophen (Percocet 5/325) 1 tab PO Q6H PRN PRN Reason: Pain, Moderate (4-6) Pravastatin Sodium (Pravachol) 20 mg PO QHS [facility] Last Admin: 11/01/19 22:03 Dose: 20 mg Documented by: Sodium Chloride (Sodium Chloride Flush Syringe 10 Ml) 10 ml IV BID [facility] Last Admin: 11/02/19 09:32 Dose: 10 ml Documented by: Sodium Chloride (Sodium Chloride Flush Syringe 10 Ml) 10 ml IV PRN PRN PRN Reason: LINE FLUSH Tamsulosin HCl (Flomax) 0.4 mg PO BID [facility] Last Admin: 11/02/19 09:31 Dose: 0.4 mg Documented by: Zolpidem Tartrate (Ambien) 5 mg PO QHS PRN PRN Reason: Insomnia Last Admin: 11/02/19 01:43 Dose: 5 mg Documented by: Review of Systems All systems: negative Neurological: other (Fall) Physical Examination - Vital Signs Vital Signs: Vital Signs Pulse Resp Pulse Ox 62 22 97 10/31/19 12:30 10/31/19 12:30 10/31/19 12:30 - Physical Exam Narrative exam: Patient is alert, awake, oriented only to self, minus year/month/location/family names (This is his baseline), follows 2-step commands. PERRL, EOMI, VFF, tongue midline, bilaterally intact to LT, no facial weakness noted. 5/5 strength in all extremities. Bilaterally intact light touch. Bilaterally intact to FTN and HTS. 2+ reflexes throughout. - Constitutional General appearance: comfortable - EENT EENT: Present: ATNC, PERRL, mucous membranes moist, hearing intact, vision intact - Respiratory Respiratory: Present: lungs clear, normal breath sounds - Cardiovascular Cardiovascular: Present: normal S1, normal S2 Extremities: Present: no clubbing, cyanosis, no inflammation - Gastrointestinal Gastrointestinal: Present: normoactive bowel sounds, soft, non-tender - Integumentary Integumentary: Present: normal - Musculoskeletal Musculoskeletal: Present: no fluid collection - Psychiatric Psychiatric: Present: mood/affect appropriate, other (Noted to have significant cognitive deficits, which is his baseline.) Results - Laboratory Findings CBC and BMP: 11/01/19 05:35 11/01/19 05:35 Abnormal Lab Findings: Abnormal Labs 10/31/19 10/31/19 10/31/19 11:51 11:51 Unknown WBC 16.3 H RBC 5.14 H Hgb 9.4 L Hct 30.8 L MCV 60 L MCH 18 L MCHC 31 L RDW 22.9 H Plt Count 683 H [place] % (Auto) Baso % (Auto) Burke # Baso # Seg Neuts % (Manual) 88.0 H Lymphocytes % (Manual) 4.0 L Seg Neutrophils # Man 14.3 H Lymphocytes # (Manual) 0.7 L Monocytes # (Manual) 1.0 H Basophils # (Manual) 0.2 H PT 16.9 H INR 1.35 H Sodium 132 L Chloride 95.2 L Carbon Dioxide BUN Glucose 70 L POC Glucose AST Total Protein Albumin 10/31/19 11/01/19 11/01/19 Unknown 05:35 05:35 WBC RBC 5.39 H Hgb 10.0 L Hct 32.8 L MCV 61 L MCH 19 L MCHC 31 L RDW 23.1 H Plt Count 659 H Burke % (Auto) 15.4 H Baso % (Auto) 2.0 H Burke # 1.6 H Baso # 0.2 H Seg Neuts % (Manual) Lymphocytes % (Manual) Seg Neutrophils # Man Lymphocytes # (Manual) Monocytes # (Manual) Basophils # (Manual) PT INR Sodium 129 L Chloride 91.8 L Carbon Dioxide 21 L BUN 8 L Glucose POC Glucose AST 56 H Total Protein 6.1 L Albumin 3.4 L 11/01/19 13:18 WBC RBC Hgb Hct MCV MCH MCHC RDW Plt Count [place] % (Auto) Baso % (Auto) Burke # Baso # Seg Neuts % (Manual) Lymphocytes % (Manual) Seg Neutrophils # Man Lymphocytes # (Manual) Monocytes # (Manual) Basophils # (Manual) PT INR Sodium Chloride Carbon Dioxide BUN Glucose POC Glucose 180 H AST Total Protein Albumin Assessment and Plan Patient is an 83-year-old man with a history of dementia, diabetes, hypertension, prostate CA, hyperlipidemia, CHF, who presented after a fall at home. Patient was found to have hyponatremia, second-degree AV block, and bradycardia. Initially the patient had mild slowness in his response, however he returned to baseline mental status. According patient's clinical findings, it is likely that he had metabolic encephalopathy in the setting of hyponatremia, and cardiac abnormalities. Currently, per family, the patient is back at baseline mental status, and patient has significant cognitive deficits at baseline due to dementia. Plan: 1. Metabolic encephalopathy: - Resolved. Patient is now back at baseline of mental status -CT head: No acute abnormality. Carotid ultrasound: No significant stenosis. Echocardiogram: EF 60 to 65%, LA normal size. Urinalysis not indicative of UTI. -Found to have hyponatremia of 129 on admission, which is since resolved. -Further management of AV block and bradycardia per cardiology. -As patient is back in baseline mental status, no further neurologic investigations indicated. -As patient has pre-existing diagnosis of dementia, recommend follow-up with his primary neurologist as outpatient. -Will sign off. Please call with any questions. Thank you for allowing me to take part in the care of this patient. Miguel Melara MD Neurology
[2019-11-02] MEDS: PRAVASTATIN 20 MG TAB PO SCH (21:56)
[2019-11-03] MEDS ORDERED: hydrALAZINE 20 MG/1 ML INJ IV ONE (00:15)
[2019-11-03 00:56] LABS: Alanine Aminotransferase 13 units/L (7-56); Albumin 3.8 g/dL (3.9-5); BUN/Creatinine Ratio 13; Blood Urea Nitrogen 10 mg/dL (9-20); Calcium 8.4 mg/dL (8.4-10.2); Hemolysis Index 0
[2019-11-03] MEDS: TAMSULOSIN 0.4 MG CAP PO SCH (09:28)
[2019-11-03] MEDS: ASPIRIN 81 MG TAB CHEW PO SCH (09:28)
[2019-11-03] MEDS: MEMANTINE 10 MG TAB PO SCH (09:28)
[2019-11-03] MEDS: hydroCHLOROthiazide 25 MG TAB PO SCH (09:28)
[2019-11-03] MEDS: amLODIPine 10 MG TAB PO SCH (09:29)
[2019-11-03] MEDS: LOSARTAN 50 MG TAB PO SCH (09:29)
--- NOTE | 2019-11-03 09:33 | Progress Note ---
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 Recommendations: Continue same management Avoid AVN or SN blocking agents Subjective Date of service: 11/03/19 Principal diagnosis: Bradyarrhythmias Interval history: Patient si eating breakfast. He denies chest pain or shortness of breath Objective Vital Signs Temp Pulse Resp BP Pulse Ox 11/03/19 09:29 68 153/102 11/03/19 08:35 98.2 F 68 18 153/102 99 11/03/19 08:00 18 11/03/19 03:59 98.0 F 58 L 18 164/62 99 11/03/19 00:45 60 186/62 11/02/19 23:46 98.0 F 67 20 186/62 96 11/02/19 23:00 89 11/02/19 20:05 98.9 F 75 20 172/51 97 11/02/19 16:31 66 18 173/52 100 11/02/19 15:00 52 L 11/02/19 13:26 18 165/60 11/02/19 12:24 98.4 F 58 L 18 186/122 99 11/02/19 12:00 18 - Physical Examination General: No Apparent Distress Neck: Positive: trachea midline Cardiac: Positive: Reg Rate and Rhythm Lungs: Positive: Normal Exam - Labs and Meds Cardiac Enzymes 11/03/19 Range/Units 00:16 AST 23 (5-40) units/L Comprehensive Metabolic Panel 11/03/19 Range/Units 00:16 Sodium 132 L (137-145) mmol/L Potassium 3.8 (3.6-5.0) mmol/L Chloride 96.6 L (98-107) mmol/L Carbon Dioxide 23 (22-30) mmol/L BUN 10 (9-20) mg/dL Creatinine 0.8 (0.8-1.5) mg/dL Glucose 143 H (75-100) mg/dL Calcium 8.4 (8.4-10.2) mg/dL AST 23 (5-40) units/L ALT 13 (7-56) units/L Alkaline Phosphatase 47 (35-129) units/L Total Protein 6.4 (6.3-8.2) g/dL Albumin 3.8 L (3.9-5) g/dL - Imaging and Cardiology EKG: report reviewed (Heart rate of 45/min bradycardia with irregular heart rate left anterior fascicular block second EKG second-degree AV block with a drop with PVCs heart rate of 60)
[2019-11-03] MEDS: HEPARIN 5,000 UNIT/1 ML VIAL SUB-Q SCH (09:35)
[2019-11-03 14:51] VITALS: BP 166/65
--- NOTE | 2019-11-03 15:48 | Discharge Summary ---
Providers - Providers Date of Admission: 11/01/19 15:34 Date of discharge: 11/03/19 Attending physician: DENITA MAYO 10/31/19 21:34 Consult to Physician [CONS] Routine Comment: Consulting Provider: ANGELA MCCURDY Physician Instructions: Reason For Exam: Second-degree AV block, syncope and collapse 10/31/19 23:59 Consult to Dietitian/Nutrition [CONS] Routine Physician Instructions: Reason For Exam: Reason for Consult: Pt needs oral supplement 11/02/19 14:47 Physical Therapy Evaluation and Treat [CONS] Routine Comment: Reason For Exam: Syncope 11/02/19 15:12 Consult to Physician [CONS] Routine Comment: Consulting Provider: SONIA JOSEPH Physician Instructions: Reason For Exam: syncope/AMS / cardiology rec Primary care physician: PRODUCT DEVELOPMENT ENGINEER Hospitalization Condition: Stable Disposition: DC-30 STILL A PATIENT Exam - Constitutional Vitals: Temp Pulse Resp BP Pulse Ox 97.7 F 85 18 166/65 98 11/03/19 12:03 11/03/19 12:03 11/03/19 12:03 11/03/19 12:03 11/03/19 12:03 Plan Activity: advance as tolerated, fall precautions Diet: other (cardiac diet) Special Instructions: physical therapy Additional Instructions: Follow-up ornamental ironworker helper in 1 to 2 weeks. Advised to see sheet metal worker for further evaluation of thrombocytosis. Fall precautions. Stop clonidine Follow up with: VIKASH MARTINEZ MD [Primary Care Provider] - 3-5 Days EMILIANO CINTRON MD [Staff Physician] - 7 Days JESSE PONCE MD [Staff Physician] - 7 Days Prescriptions: hydrALAZINE [Apresoline TAB] 10 mg PO Q8H #90 tablet
== END 2019-11-03 18:52 | disposition home health service (06) | DRG 308 ==
LOC: ED 11:19 → 4A 21:34 → OBSVTOIN 11-01 15:34
PROVIDERS: ADMIT Internal Medicine; ATTEND Internal Medicine
DX: I44.1 Atrioventricular block, second degree (principal); G93.41 Metabolic encephalopathy; E87.1 Hypo-osmolality and hyponatremia; F03.90 Unspecified dementia, unspecified severity, without behavioral disturbance, psychotic disturbance, mood disturbance, and anxiety; E11.9 Type 2 diabetes mellitus without complications; E78.00 Pure hypercholesterolemia, unspecified; I11.0 Hypertensive heart disease with heart failure; I50.9 Heart failure, unspecified; R00.1 Bradycardia, unspecified; D72.829 Elevated white blood cell count, unspecified; R55 Syncope and collapse; D64.9 Anemia, unspecified; E78.2 Mixed hyperlipidemia; D47.3 Essential (hemorrhagic) thrombocythemia; I45.10 Unspecified right bundle-branch block; W18.39XA Other fall on same level, initial encounter; Z85.46 Personal history of malignant neoplasm of prostate; Z79.82 Long term (current) use of aspirin; Z79.899 Other long term (current) drug therapy; Y93.89 Activity, other specified; Y92.098 Other place in other non-institutional residence as the place of occurrence of the external cause; Y99.8 Other external cause status
CPT/HCPCS: 36415; 70450; 71045; 80048; 80053; 80076; 81001; 82140; 82962; 83036; 83735; 84443; 84484; 85007; 85025; 85610; 87040; 93005; 93010; 93306; 93880; 96374; G0378; A9270-GY; J0360; J0696; J1644; J2785; J7030